=== PATIENT | male | born 1935 | race Caucasian/White ===

== ENCOUNTER 2022-12-08 19:24 | Inpatient (IN) | payer OTHER ==
--- OUTSIDE RECORDS SUMMARY | 2022-12-08 19:30 | XMS REPORT | Continuity of Care Document ---
:1935 Author Organization [facility] t Address [address] [place] [address] Clint. [address] [place] [address] Care Team Providers Name Role Phone Greg Guthrie Primary Care Physician Yesica Beard Attending Clinician Unavailable Estelle Alvarez Attending Clinician Unavailable Ivory Whitney Attending Clinician RADIOLOGY Attending Clinician Unavailable Radiology Attending Clinician Unavailable Payers Payer Name Policy Type Policy Number Effective Date Expiration Date [employer] [id number] 2021spring 00:00:00 [employer] [id number] 2019 Common Sp devin ing Medicare 00:00:00 - [facility] Problems Condition Condition Condition Status Onset Resolution Last Treating Co mments Source Name Details Category Date Date Treatment Clinician Date OCHCHITIS, OCHCHITIS Diagnosis Active 2013-04-21 Memoria EPIDYDIMIT , 04-10 21:49:00 l IS EPIDYDIMIT 00:00: Trevor araiza IS Active 00 04/10/2013 [facility] EPIDIDMITI Diagnosis Active 2013-04-11 Memoria S EPIDIDMITI 04-10 04:56:00 l S Active 00:00: John 04/10/2013 [facility] Thoracic Thoracic Disease Active Overview: Un karl or or 01-15 Formattin ity of lumbosacra lumbosacra 00:00: g of this [place] l neuritis l neuritis 00 note Me dical or or might be Branch radiculiti radiculiti different s, s, from the unspecifie unspecifie original. d d Left lower extermity radiculit is/numbne ss. Seborrheic Seborrheic Disease Active Overview : Univers dermatitis dermatitis Formattin ity of g of this [place] note Medical might be Branch different from the original. 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 [facility] [id number] Benign Problem Commo n 101 prostatic Spirit hyperplasi - CHI a with [facility] urinary Medical tract Center symptoms Low back Low back Problem Commo n pain pain Spirit [facility] Benign BPH Problem Common prostatic (benign Spirit hypertroph prostatic - C HI y with hypertroph St outflow y) with [facility] obstructio urinary Medic al n obstructio Center n Osteoarthr OA Problem Commo n itis (osteoarth Spirit ritis) - [facility] 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 - CH I due to with type 2 diabetic [facility] diabetes autonomic Medic al mellitus (poly)neur Cent er opathy 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 - [facility] Dupuytren Dupuytren Problem Com mon contractur contractur Sp devin e e - CHI [facility] Essential Benign Problem Common hypertensi essential Spi rit on HTN - [facility] [id number] Diabetic Problem Comm on retinopath Spirit y, - CHI background [facility] 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 - [facility] [id number] Kidney Problem Common stones Spirit - [facility] [id number] Erectile Problem Com mon disorder Spirit due to - medical condition [facility] in male Medical Center [id number] Type 2 Problem Common diabetes Spirit mellitus - CHI with diabetic [facility] neuropathy Medica l , without Center long-term current use of insulin [id number] Hypoglycem Problem Co mmon ic episode Spirit in patient - CHI with diabetes [facility] mellitus [facility] Kidney Kidney Problem Resolve 2013-04-22 Mem oria stone stone d 02:25:37 l Resolved John Problem 04/22/2013 [facility] Hypertensi Hypertens Problem Active 2022-05-29 Memoria ve lexie 11:07:14 l disorder, disorder, Herm steven systemic systemic arterial arterial (disorder) (disorder) Active Problem 05/29/2022 Medical Group,[facility] Lower Lower Problem Active 2022-05-29 [place] samuel urinary urinary 11:07:14 l tract tract [place] symptoms symptoms (finding) (finding) Active Problem 05/29/2022 Medical Group,[facility] 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 [place] (disorder) (disorder) Active Problem 05/29/2022 Medical Group,[facility] HTN - HTN - Problem Active 2013-04-22 Memor ia Hypertensi Hypertensi 02:25:37 l on on Active Trevor n Problem 04/22/2013 [facility] OTHER OTHER Diagnosis Active 2013-04-21 Mem oria GENERAL GENERAL 21:49:00 l SYMPTOMS SYMPTOMS Trevor n Active [facility] Allergies, Adverse Reactions, Alerts Allergy Allergy Status Severity Reaction(s) Onset Inactive Treating Comm ents Source Name Type Date Date Clinician NO KNOWN Drug Active Univers ALLERGIE Class ity of [facility] No Known No Known Active Memori a Medicati Medicati l on on John Allergie Allergie s s Social History Social Habit Start Date Stop Date Quantity Comments Source History of Common Spirit - Tobacco Use [facility] Sex Assigned At Common Sp devin - [facility] History SDWI University o f Alcohol Binge [place] Medic al Branch Exposure to Not sure University of SARS-CoV-2 [place] Medical (event) Branch History [facility] University o f Alcohol Frequency [facility] edical Branch History [facility] University o f Alcohol Std [place] Medical Drinks Branch Alcohol intake 2006-12-02 2006-12-02 Current drinker Unive rsity of 00:00:00 00:00:00 of alcohol [facility] (finding) Branch Alcohol Comment 2006-09-22 2006-09-22 no recent intake Uni versity of 00:00:00 00:00:00 alcohol, not for [place] Me dical 20 years. Branch Tobacco Comment 2006-09-22 2006-09-22 smoked for 20 Univer sity of 00:00:00 00:00:00 years, but quit [place] Med ical 15 years ago. Branch Smoking Status Start Date Stop Date Source Never Smoker Common Spirit - [facility] Ce nter Tobacco smoking status 2021-08-05 16:46:46 2021-08-05 16:46:46 M arpita Lopez Medications Ordered Filled Start Stop Current Ordering Indication Dosage Frequency Signature Comments Components Source Medication Medication Date Date Medication? Clinician (SIG) Name Name FreeStyle FreeStyle 2021-07 No QD FreeStyle Edw[place] 2 [place] 2 0-20 [place] 2 [place]: [place] 00 FreeStyle FreeStyle 2021-07 No FreeStyle Edwige 2 Edwige 2 0-20 Edwige 2 Sensor - Sensor - 00:00: Sensor - 00 FreeStyle FreeStyle 2021-07 No QD FreeStyle [place] 2 Ed[place] 2 0-20 [place] 2 [place] 00[place]: [place] - 00 FreeStyle FreeStyle 2021-07 No FreeStyle Edwige 2 Edwige 2 0-20 Edwige 2 Sensor - Sensor - 00:00: Sensor - 00 FreeStyle FreeStyle 2021-07 No QD FreeStyle Edw[place] 2 Edw[place] 2 0-20 [place] 2 [place] 00:[place]: [place] - 00 FreeStyle FreeStyle 2021-07 No QD FreeStyle Edwige 2 Edw[place] 2 0-20 [place] 2 [place] 00:[place]: [place] - 00 Levothyroxi Levothyroxi 0 No QD Levothyrox ne Sodium ne Sodium 9-28 ine Sodium 50 MCG 50 MCG 00:00: 50 MCG 00 Levothyroxi Levothyroxi 0 No QD Levothyrox ne Sodium ne Sodium 9-28 ine Sodium 50 MCG 50 MCG 00:00: 50 MCG 00 Levothyroxi Levothyroxi 0 No QD Levothyrox ne Sodium ne Sodium 9-28 ine Sodium 50 MCG 50 MCG 00:00: 50 MCG 00 Levothyroxi Levothyroxi 0 No QD Levothyrox ne Sodium ne Sodium 9-28 ine Sodium 50 MCG 50 MCG 00:00: 50 MCG 00 Levothyroxi Levothyroxi 0 No QD Levothyrox ne Sodium ne Sodium 9-28 ine Sodium 50 MCG 50 MCG 00:00: 50 MCG 00 Levothyroxi Levothyroxi 0 No QD Levothyrox ne Sodium ne Sodium 9-28 ine Sodium 50 MCG 50 MCG 00:00: 50 MCG 00 Levothyroxi Levothyroxi No QD Levothyrox ne Sodium ne Sodium 9-28 ine Sodium 50 MCG 50 MCG 00:00: 50 MCG 00 Levothyroxi Levothyroxi No QD Levothyrox ne Sodium ne Sodium 7-07 ine Sodium 25 MCG 25 MCG 00:00: 25 MCG 00 Levothyroxi Levothyroxi No QD Levothyrox ne Sodium ne Sodium 7-07 ine Sodium 25 MCG 25 MCG 00:00: 25 MCG 00 finasteride Yes 5 mg = 1 Me moria 5 mg oral 5-23 tab, PO, l tablet 17:49: Daily, # John 00 90 tab, 3 Refill(s), Pharmacy: [facility], 177.8, cm, 12/02/21 11:17:00 CDT, Height, 122.898, kg, 12/02/21 11:17:00 CDT, Weight tamsulosin Yes 0.4 mg = 1 M emoria 0.4 mg oral 5-23 cap, PO, l capsule 17:49: Daily, # Trevor n 00 90 cap, 3 Refill(s), Pharmacy: [facility], 177.8, cm, 12/02/21 11:17:00 CDT, Height, 122.898, kg, 12/02/21 11:17:00 CDT, Weight metFORMIN Yes 1,000 mg = Me moria 1000 mg 5-23 1 tab, PO, l oral tablet 16:21: BID, 0 Herm steven 00 Refill(s) nateglinide 0 Yes 60 mg = 1 M emoria 60 mg oral 5-23 tab, PO, l tablet 16:21: TID-Before Judy nn 00 Meals, 0 Refill(s) ketoconazol 0 Yes 1 appl, Mem oria e topical 5-23 TOP, l 2% shampoo 16:20: 2x/Wk, Judy nn 00 separate doses by at least 3 days, # 120 mL, 1 Refill(s) DULoxetine Yes 60 mg = 1 Me moria 60 mg oral 5-23 cap, PO, l delayed 16:20: Daily, 0 Trevor n release 00 Refill(s) capsule gabapentin Yes 300 mg = 1 M emoria 300 mg oral 5-23 cap, PO, l capsule 16:20: TID, 0 John 00 Refill(s) lovastatin 0 Yes 20 mg = 1 Me moria 20 mg oral 5-23 tab, PO, l tablet 16:20: Daily, 0 [place] 00 Refill(s) ciclopirox 0 Yes TOP, BID, Me moria topical 5-23 0 l 0.77% cream 16:19: Refill(s) H erm finasteride Yes 5 mg = 1 Me moria 5 mg oral 2-28 tab, PO, l tablet 15:52: Daily, # [place] 00 90 tab, 1 Refill(s), Pharmacy: [facility], 177.8, cm, 09/09/21 9:37:00 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, Height, 120.909, kg, 09/09/21 9:37:00 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, Weight tamsulosin Yes 0.4 mg = 1 M emoria 0.4 mg oral 2-28 cap, PO, l capsule 15:52: Daily, # Trevor n 00 90 cap, 1 Refill(s), Pharmacy: [facility], 177.8, cm, 09/09/21 9:37:00 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, Height, 120.909, kg, 09/09/21 9:37:00 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, Weight Hydrochloro 2021-0 Yes 0 Memori a thiazide 25 1-24 Refill(s) l MG Oral 21:57: [place] Tablet 00 hydrochloro 0 Yes 0 Memori a thiazide 25 1-24 Refill(s) l mg oral 21:57: John tablet 00 FreeStyle FreeStyle 2020-0 Yes Na Alvarez as Common Edwige 14 Edwige 14 - directed Spi rit Day [place] Day [place] 00:00: - [facility]I 00 [facility] FreeStyle FreeStyle 2020-0 Yes Na Alvarez USE Common Edwige 14 Edwige 14 02-08 DIRECTED Spi rit Day Sensor Day Sensor 00:00: EVERY 14 - CHI 00 DAYS [facility] FreeStyle FreeStyle 2020-0 No QD FreeStyle Ewdige 14 Edwige 14 7-30 Ed[place]ige 14 Day [place] Day [place] 00:00: Day [place] - - 00 - FreeStyle FreeStyle 2020-0 No QD FreeStyle [place] 14 Edwige 14 7-30 Ed[place]ige 14 Day [place] Day [place] 00:00: Day [place] - - 00 - FreeStyle FreeStyle 2020-0 No QD FreeStyle [place] 14 Edwige 14 7-30 Ed[place]ige 14 Day [place] Day [place] 00:00: Day [place] - - 00 - FreeStyle FreeStyle 2020-0 No QD FreeStyle Ed[place]ige 14 Edwige 14 7-30 Ed[place]ige 14 Day [place] Day [place] 00:00: Day [place] - - 00 - FreeStyle FreeStyle 2020-0 No QD FreeStyle Ed[place]ige 14 Edwige 14 7-30 Ed[place]ige 14 Day [place] Day [place] 00:00: Day [place] - - 00 - FreeStyle FreeStyle 2020-0 No QD FreeStyle Ed[place]ige 14 Edwige 14 7-30 Ed[place]ige 14 Day [place] Day [place] 00:00: Day [place] - - 00 - FreeStyle FreeStyle 2020-0 No QD FreeStyle Edwige 14 Edwige 14 7-30 Ed[place]ige 14 Day [place] Day [place] 00:00: Day [place] - - 00 - FreeStyle FreeStyle 2020-0 No QD FreeStyle Ed[place]ige 14 Edwige 14 7-30 Edwige 14 Day [place] Day [place] 00:00: Day [place] - - 00 - FreeStyle FreeStyle 2020-0 No QD FreeStyle Edwige 14 Edwige 14 7-30 Edwige 14 Day [place] Day [place] 00:00: Day [place] - - 00 - FreeStyle FreeStyle 2020-0 No QD FreeStyle Edwige 14 Edwige 14 7-30 Edwige 14 Day [place] Day [place] 00:00: Day [place] - - 00 - FreeStyle FreeStyle 2020-0 No QD FreeStyle Edwige 14 Edwige 14 7-30 Edwige 14 Day [place] Day [place] 00:00: Day [place] - - 00 - Nateglinide Nateglinide 2020-0 Yes Na Alvarez 1 tablet Common 01-01 before Spirit 00:00: meals - CHI 00 [facility] Gabapentin Gabapentin 2020-0 Yes Na Alvarez as Common 4-07 directed Spirit 00:00: - CHI 00 [facility] Lipitor 2012- No Nila 20 mg, 1 Memor ia 0-05 Mirna tab, l 02:00: Frida Route: PO, Her gallagher 00 Drug form: TAB, Bedtime, Start date: 04/15/13 21:00:00, Duration: 30 day, Stop date: 05/14/13 21:00:00 lovastatin 2012-07 No Nila 40 mg, [place] samuel 0-04 Mirna Route: PO, l 14:00: Frida Drug form: Her gallagher 00 TAB, Daily, Dosing Weight 120.2, kg, Start date: 04/15/13 9:00:00, Duration: 30 day, Stop date: 05/14/13 9:00:00 heparin 2012-07 No Nila 7,500 Memoria 0-04 Mirna unit, 1.5 l 05:00: Frida mL, Route: Her gallagher 00 SUB-Q, Drug form: INJ, Q8H, Start date: 04/15/13 0:00:00, Duration: 30 day, Stop date: 05/14/13 16:00:00 lactulose 2012-07 No Nila 10 gm, 15 Me moria 10 g/15 mL 0-04 Mirna mL, Route: l oral syrup 02:40: Frida PO, Drug [place] 00 Form: SYRP, Dosing Weight 120.2, kg, ONCE, Start date: 04/14/13 21:40:00, Stop date: 04/14/13 21:40:00 levofloxaci 2012-07 Yes Nila 750 mg, 1 Memoria n 750 mg 0-03 Mirna tab, PO, l oral tablet 20:11: Frida Q24H, 10 [place] 55 tab, Substituti on Allowed, TAB Colace 100 2012-07 Yes Nila 100 mg, 1 M emoria mg oral 0-03 Mirna cap, PO, l capsule 20:11: Frida BID, 30 Her gallagher 52 cap, Substituti on Allowed, CAP acetaminoph 2012-07 Yes Nila 1 tab, PO, Memoria en-hydrocod 0-03 Mirna Q4H, PRN, l one 325 20:11: Frida 30 tab, Her gallagher mg-5 mg 50 Pain Score oral tablet 4-6, Substituti on Allowed, Maintenanc e, TAB ibuprofen 2013-1 Yes Nila 400 mg, 1 Me moria 400 mg oral 0-03 Mirna tab, PO, l tablet 20:11: Frida Q8H, 30 Herm steven 48 tab, Substituti on Allowed, TAB Levaquin 2012-07 No Nila 750 mg, 1 Mem oria 0-03 Mirna tab, l 16:00: Frida Route: PO, Her gallagher 00 Drug form: TAB, Q24H, Dosing Weight 120.2, kg, For CrCl > 49ml/min, Start date: 04/14/13 11:00:00, Duration: 10 day, Stop date: 04/23/13 11:00:00 Fluzone 2012-07 No SYSTEM 0.5 mL, Memor ia 002 SYSTEM Route: IM, l 21:00: Drug Form: John 00 SUSP, Start date: 04/13/13 16:00:00, Stop date: 04/13/13 16:00:00 Colace 100 2012-07 No Adam 100 mg, 1 M emoria mg oral 0-02 Demarco cap, l capsule 14:00: Hasan Route: PO, Her gallagher 00 Drug form: CAP, BID, Dosing Weight 120.2, kg, Start date: 04/13/13 9:00:00, Duration: 30 day, Stop date: 05/12/13 17:00:00 MiraLax 2012-07 No Adam 17 gm, 1 Memor ia 0-02 Demarco pkt, l 03:26: Hasan Route: PO, Trevor n 00 Drug form: PWDR, BID, Dosing Weight 120.2, kg, PRN Constipati on, Start date: 04/12/13 22:26:00, Duration: 30 day, Stop date: 05/12/13 22:25:00 Levaquin 2012-07 No Nila 750 mg, Memor ia 0-01 Mirna 150 mL, l 15:30: Frida Route: [place] 00 IVPB, Drug form: SOLN, [id number], Dosing Weight 120.2, kg, Start date: 04/12/13 10:30:00, Duration: 30 day, Stop date: 05/11/13 10:30:00 lovastatin Yes 40 mg, 1 Mem oria 40 mg oral 9-30 tab, PO, l tablet 22:00: Daily, 30 Trevor n 41 tab, Substituti on Allowed, TAB lovastatin 0 Yes Nila 40 mg, 1 Me moria 40 mg oral 9-30 Mirna tab, PO, l tablet 22:00: Frida Daily, 30 He rmann 41 tab, Substituti on Allowed, TAB Metoprolol 2012-0 Yes 25 mg, 1 Mem oria Tartrate 25 9-30 tab, PO, l mg oral 22:00: BID, 60 [place] tablet 00 tab, Substituti on Allowed Metoprolol 2012-0 Yes 25 mg, 1 Mem oria Tartrate 25 9-30 tab, PO, l mg oral 22:00: BID, 60 [place] tablet 00 tab, Substituti on Allowed Cipro 0 No Beryl H 400 mg, Memoria 9-30 Khraish 200 mL, l 20:00: Route: John 00 IVPB, Drug form: INJ, [id number], Start date: 04/11/13 15:00:00, Duration: 30 day, Stop date: 05/11/13 3:00:00 Sodium 2012-0 No Belgin 1,000 mL, [place] samuel Chloride 9-30 Camcioglu Rate: 40 l 0.9% IV 16:11: ml/hr, [place] 1,000 mL 00 Infuse over: 25 hr, Route: IV, Dosing Weight 120.2 kg, Total Volume: 1,000, Start date: 04/11/13 11:11:00, Duration: 30 day, Stop date: 05/11/13 11:10:00 morphine 2012-0 No [place] 2 mg, 1 [place] samuel Sulfate 9-30 Camcioglu mL, Route: l 16:09: IVP, Drug form: INJ, Q3H, PRN Pain Score 7-10, Start date: 04/11/13 11:09:00, Duration: 30 day, Stop date: 05/11/13 11:08:00 acetaminoph 2012-0 No [place] 1 tab, Me moria en-hydrocod 9-30 Camcioglu Route: PO, l one 325 16:00: Drug Form: Herm steven mg-5 mg 00 TAB, Q4H, oral tablet PRN Pain Score 4-6, Start date: 04/11/13 11:00:00, Duration: 30 day, Stop date: 05/11/13 10:59:00 influenza 2012-0 No SYSTEM 0.5 mL, Mem oria virus 930 SYSTEM Route: IM, l vaccine, 14:00: Drug Form: gallagher inactivated 00 SUSP, Daily, Start date: 04/11/13 9:00:00, Duration: 1 doses or times, Stop date: 04/11/13 9:00:00 Lopressor 2012-0 No [place] 12.5 mg, 1 Memoria 9-30 Camcioglu ea, Route: l 14:00: PO, Drug [place] form: TAB, BID, Start date: 04/11/13 9:00:00, Duration: 30 day, Stop date: 05/10/13 21:00:00 metoprolol 2012-0 No [place] 12.5 mg, 1 Memoria tartrate 9-30 Camcioglu ea, Route: l 14:00: PO, Drug [place] form: TAB, BID, Dosing Weight 125, kg, Start date: 04/11/13 9:00:00, Duration: 30 day, Stop date: 05/10/13 17:00:00 ibuprofen 2012-0 No Kristi 400 mg, 1 M emoria 400 mg oral 9-30 Zara tab, l tablet 13:00: [place] Route: PO, Her gallagher 00 Drug form: TAB, Q8H, Dosing Weight 125, kg, Priority: Routine, Start date: 04/11/13 8:00:00, Duration: 3 day, Stop date: 04/14/13 0:00:00 Motrin 2012-0 No Kristi 400 mg, 1 [place] samuel 9-30 Zara tab, l 13:00: [place] Route: PO, Judy nn 00 Drug form: TAB, Q8H, Start date: 04/11/13 8:00:00, Duration: 30 day, Stop date: 05/11/13 4:00:00 aspirin 2012-0 Yes 81 mg, PO, [place] samuel 9-30 Daily, l 11:44: Substituti [place] 35 on Allowed aspirin 2012-0 Yes 81 mg, PO, [place] samuel 9-30 Daily, l 11:44: Substituti John 35 on Allowed NS 1,000 mL No Bel[place] 1,000 mL, Memoria 9-30 Camcioglu Rate: 40 l 09:11: ml/hr, [place] 00 Infuse over: 25 hr, Route: IV, Dosing Weight 125 kg, Total Volume: 1,000, Start date: 04/11/13 4:11:00, Duration: 30 day, Stop date: 05/11/13 4:10:00 acetaminoph No [place] 1 tab, Me moria en-hydrocod 9-30 Camcioglu Route: PO, l one 325 09:10: Drug Form: Herm steven mg-5 mg 00 TAB, oral tablet Dosing Weight 125, kg, Q4H, PRN Pain Score 4-6, Start date: 04/11/13 4:10:00, Duration: 30 day, Stop date: 05/11/13 4:09:00 morphine No [place] 2 mg, 1 [place] samuel Sulfate 30 Cam[place]lu mL, Route: l 09:10: IVP, Drug John 00 form: INJ, Q3H, Dosing Weight 125, kg, PRN Pain Score 7-10, Start date: 04/11/13 4:10:00, Duration: 30 day, Stop date: 05/11/13 4:09:00 Dilaudid No Nila 1 mg, 0.5 Mem oria 9-30 Phoebe mL, Route: l 08:36: Shorty IV, Drug Herm steven form: INJ, ONCE, Dosing Weight 125, kg, Start date: 04/11/13 3:36:00, Stop date: 04/11/13 3:36:00 ibuprofen 2012- No Nila 600 mg, 1 Me moria 9-30 Phoebe tab, l 08:35: Shorty Route: PO, He rmann 00 Drug form: TAB, ONCE, Dosing Weight 125, kg, Priority: STAT, Start date: 04/11/13 3:35:00, Stop date: 04/11/13 3:35:00 Cipro 2012- No Kristi 400 mg, Memoria 9-30 Zara 200 mL, l 07:45: [place] Route: John 00 IVPB, Drug form: INJ, [id number], Dosing Weight 125, kg, Priority: STAT, Start date: 04/11/13 2:45:00, Duration: 30 day, Stop date: 05/10/13 14:45:00 Dilaudid No Nila 1 mg, Memoria 04-11 Phoebe Route: IV, l 04:53: Shorty ONCE, [place] 00 Dosing Weight 125, kg, Start date: 04/10/13 23:53:00, Stop date: 04/10/13 23:53:00 Flagyl No Nila 500 mg, Memoria 04-11 Phoebe 100 mL, l 04:50: Shorty Route: Trevor n 00 IVPB, Drug form: INJ, ONCE, Dosing Weight 125, kg, Priority: STAT, Start date: 04/10/13 23:50:00, Stop date: 04/10/13 23:50:00 HYDROCODONE 2006-07 Yes 1tab Q Univ ers -ACETAMINOP 1-23 4-6H prn ity of HEN 5-500 13:52: pain [place] MG ORAL TAB [address] [place] [address] Branch LIPITOR 10 2006-07 Yes 2tabs po Uni vers MG ORAL TAB 1-23 QD ity of 13:52: [address] TOPROL XL 2006-07 Yes 2tabs po Univ ers 50 MG ORAL 1-23 QD ity of TB24 13:52: [address] HYDROCODONE 2006-07 Yes 1tab Q Univ ers -ACETAMINOP 1-23 4-6H prn ity of HEN 5-500 13:52: pain [place] MG ORAL TAB Medical Branch LIPITOR 10 2006-07 Yes 2tabs po Uni vers MG ORAL TAB 1-23 QD ity of 13:52: [address] TOPROL XL 2006-07 Yes 2tabs po Univ ers 50 MG ORAL 1-23 QD ity of TB24 13:52: [address] Branch LASIX 20 MG Yes [id number] 1 tab po Univers ORAL TAB 7-10 daily ity of 00:00: [address] LASIX 20 MG Yes [id number] 1 tab po Univers ORAL TAB 7-10 daily ity of 00:00: [address] GABAPENTIN Yes 1tab 3x Univ ers 100 MG ORAL 7-06 daily ity of TAB 20:25: [address] HYDROCODONE 2007-0 Yes 1-2tabs Q U nivers -ACETAMINOP 7-06 4-6hrs prn it y of HEN 5-500 20:25: pain [place] MG ORAL TAB [address] [place] [address] GABAPENTIN 2006-0 Yes 1tab 3x Univ ers 100 MG ORAL 7-06 daily ity of TAB 20:25: [address] HYDROCODONE 2006- Yes 1-2tabs Q U nivers -ACETAMINOP 7-06 4-6hrs prn it y of HEN 5-500 20:25: pain [place] MG ORAL TAB [address] [place] [address] LIPITOR 10 2006- Yes 1 per day Un karl MG ORAL TAB 5-23 ity of 18:42: [address] PROTONIX 2006- Yes 1 per day Univ ers ORAL 5-23 ity of 18:42: [address] TOPROL XL Yes 1 perd day Un karl 50 MG ORAL 5-23 ity of TB24 18:42: [address] VICODIN Yes prn Univers ORAL 5-23 ity of 18:42: [address] LIPITOR 10 Yes 1 per day Un karl MG ORAL TAB 5-23 ity of 18:42: [address] PROTONIX 2006- Yes 1 per day Univ ers ORAL 5-23 ity of 18:42: [address] TOPROL XL Yes 1 perd day Un karl 50 MG ORAL 5-23 ity of TB24 18:42: [address] VICODIN 2006- Yes prn Univers ORAL 5-23 ity of 18:42: [address] ASPIRIN 81 Yes None Univers MG ORAL 5-23 Entered ity of CHEW 18:42: [address] ASPIRIN 81 2006- Yes None Univers MG ORAL 5-23 Entered ity of CHEW 18:42: [address] PRILOSEC 20 Yes one daily U nivers MG ORAL 3-27 instead of ity of CPDR 14:47: protonix [address] PRILOSEC 20 Yes one daily U nivers MG ORAL 3-27 instead of ity of CPDR 14:47: protonix [address] VIAGRA 50 Yes one about Uni vers MG ORAL TAB 3-13 an hour ity o f 00:00: before [place] 00 sex, limit Medical of one Branch dose a day VIAGRA 50 Yes one about Uni vers MG ORAL TAB 3-13 an hour ity o f 00:00: before sex, limit Medical of one Branch dose a day VICODIN Yes one bid Univers 5-500 MG 1-09 prn ity of ORAL TAB 00:00: Medical [facility] LOVASTATIN Yes two [facility] 10 MG ORAL 1-09 tablets ity of TAB 00:00: daily instead of Medical lipitor Branch TERAZOSIN 1 Yes one every U nivers MG ORAL CAP -09 bedtime ity o f 00:00: Medical Branch METOPROLOL Yes one every Un [facility]arl TARTRATE 50 1-09 am and one it y of MG ORAL TAB 00:00: every pm- [place] 00 12 hours Medical apart- Branch instead of toprol VICODIN Yes one bid [facility] 5-500 MG 1-09 prn ity of ORAL TAB 00:00: Medical Branch LOVASTATIN Yes two [facility] 10 MG ORAL 1-09 tablets ity of TAB 00:00: daily instead of Medical lipitor Branch TERAZOSIN 1 Yes one every U nivers MG ORAL CAP 09 bedtime ity o f 00:00: Medical Branch METOPROLOL Yes one every Un [facility]arl TARTRATE 50 1-09 am and one it y of MG ORAL TAB 00:00: every pm- [place] 00 12 hours Medical apart- Branch instead of toprol Aspir-81 Aspir-81 Yes Na Alvarez 1 tablet Common [facility] Hydrochloro Hydrochloro Yes Na Alvarez 1 tablet Common thiazide thiazide [facility] Metoprolol Metoprolol Yes Na Alvarez take one Common Succinate Succinate tablet by [facility] ER ER mouth once - [facility] daily [facility] Lovastatin Lovastatin Yes Na Alvarez take one Common tablet by [facility] mouth once - [facility] daily [facility] Zantac Zantac Yes Na Alvarez 1 tablet Comm on at bedtime [facility] Duloxetine Duloxetine Yes Na Alvarez TAKE 1 Common HCl HCl CAPSULE [facility] MOUTH ONCE - [facility] DAILY [facility] Famotidine Famotidine Yes Na Alvarez 1 tablet Common as needed [facility] Metformin Metformin Yes Na Alvarez 1 tablet Common HCl HCl with meals [facility] Metoprolol Metoprolol No QD Metoprolol Succinate Succinate Succinate ER 50MG ER 50MG ER 50MG DULoxetine DULoxetine No QD DULoxetine HCl 60 MG HCl 60 MG HCl 60 MG Lovastatin Lovastatin No Lovastatin 20MG 20MG 20MG Tamsulosin Tamsulosin No QD Tamsulosin HCl 0.4MG HCl 0.4MG HCl 0.4MG Lovastatin Lovastatin No QD Lovastatin 20MG 20MG 20MG Gabapentin Gabapentin No Gabapentin 300 MG 300 MG 300 MG metFORMIN metFORMIN No metFORMIN HCl 1000 MG HCl 1000 MG HCl 1000 MG Metoprolol Metoprolol No Metoprolol Succinate Succinate Succinate ER 50 MG ER 50 MG ER 50 MG FreeStyle FreeStyle No QD FreeStyle [facility] 14 Ed[facility]ige 14 [facility] 14 Day Sensor Day Sensor Day Sensor - - - Nateglinide Nateglinide No 1{table BID Nateglinid 60 MG 60 MG t_befor e 60 MG e_meals } Famotidine Famotidine No Famotidine 40 MG 40 MG 40 MG Aspir-81 81 Aspir-81 81 No 1{table QD Aspir-81 MG MG t} 81 MG hydroCHLORO hydroCHLORO No QD hydroCHLOR thiazide 25 thiazide 25 Othiazide MG MG 25 MG FreeStyle FreeStyle No QD FreeStyle [place]ige 14 Ed[place]ige 14 [place] 14 Day Sensor Day Sensor Day Sensor - - - Metformin Metformin No 1{table BID Metformin HCl 1000 MG HCl 1000 MG t_with_ HCl 1000 meals} MG Zantac 150 Zantac 150 No 1{table QD Zantac 150 MG MG t_at_be MG dtime} Metoprolol Metoprolol No QD Metoprolol Succinate Succinate Succinate ER 50MG ER 50MG ER 50MG DULoxetine DULoxetine No QD DULoxetine HCl 60 MG HCl 60 MG HCl 60 MG Metoprolol Metoprolol No Metoprolol Succinate Succinate Succinate ER 50 MG ER 50 MG ER 50 MG Tamsulosin Tamsulosin No Tamsulosin HCl 0.4 MG HCl 0.4 MG HCl 0.4 MG Metformin Metformin No 1{table BID Metformin HCl 1000 MG HCl 1000 MG t_with_ HCl 1000 meals} MG Gabapentin Gabapentin No Gabapentin 300 MG 300 MG 300 MG Lovastatin Lovastatin No QD Lovastatin 20MG 20MG 20MG Famotidine Famotidine No Famotidine 40 MG 40 MG 40 MG Nateglinide Nateglinide No Nateglinid 60 MG 60 MG e 60 MG Aspir-81 81 Aspir-81 81 No 1{table QD Aspir-81 MG MG t} 81 MG metFORMIN metFORMIN No metFORMIN HCl 1000 MG HCl 1000 MG HCl 1000 MG FreeStyle FreeStyle No QD FreeStyle [place] 14 Edwige 14 Ed[place] 14 Day Sensor Day Sensor Day Sensor - - - hydroCHLORO hydroCHLORO No hydroCHLOR thiazide 25 thiazide 25 Othiazide MG MG 25 MG FreeStyle FreeStyle No QD FreeStyle [place] 14 Ed[place] 14 [place] 14 Day Sensor Day Sensor Day Sensor - - - Lovastatin Lovastatin No Lovastatin 20MG 20MG 20MG Zantac 150 Zantac 150 No 1{table QD Zantac 150 MG MG t_at_be MG dtime} Zantac 150 Zantac 150 No 1{table QD Zantac 150 MG MG t_at_be MG dtime} Tamsulosin Tamsulosin No Tamsulosin HCl 0.4 MG HCl 0.4 MG HCl 0.4 MG DULoxetine DULoxetine No QD DULoxetine HCl 60 MG HCl 60 MG HCl 60 MG hydroCHLORO hydroCHLORO No hydroCHLOR thiazide 25 thiazide 25 Othiazide MG MG 25 MG Aspir-81 81 Aspir-81 81 No 1{table QD Aspir-81 MG MG t} 81 MG Famotidine Famotidine No Famotidine 40 MG 40 MG 40 MG Nateglinide Nateglinide No Nateglinid 60 MG 60 MG e 60 MG Lovastatin Lovastatin No Lovastatin 20MG 20MG 20MG FreeStyle FreeStyle No QD FreeStyle Ed[place]ige 14 Edwige 14 [place] 14 Day Sensor Day Sensor Day Sensor - - - Metoprolol Metoprolol No QD Metoprolol Succinate Succinate Succinate ER 50MG ER 50MG ER 50MG FreeStyle FreeStyle No QD FreeStyle Edwige 14 Edwige 14 Ed[place] 14 Day Sensor Day Sensor Day Sensor - - - Metformin Metformin No 1{table BID Metformin HCl 1000 MG HCl 1000 MG t_with_ HCl 1000 meals} MG metFORMIN metFORMIN No metFORMIN HCl 1000 MG HCl 1000 MG HCl 1000 MG Lovastatin Lovastatin No QD Lovastatin 20MG 20MG 20MG Gabapentin Gabapentin No Gabapentin 300 MG 300 MG 300 MG Metoprolol Metoprolol No Metoprolol Succinate Succinate Succinate ER 50 MG ER 50 MG ER 50 MG hydroCHLORO hydroCHLORO No hydroCHLOR thiazide 25 thiazide 25 Othiazide MG MG 25 MG Zantac 150 Zantac 150 No 1{table QD Zantac 150 MG MG t_at_be MG dtime} Metformin Metformin No 1{table BID Metformin HCl 1000 MG HCl 1000 MG t_with_ HCl 1000 meals} MG Tamsulosin Tamsulosin No Tamsulosin HCl 0.4 MG HCl 0.4 MG HCl 0.4 MG FreeStyle FreeStyle No FreeStyle Edwige 14 Edwige 14 [place] 14 Day Sensor Day Sensor Day Sensor - - - metFORMIN metFORMIN No metFORMIN HCl 1000 MG HCl 1000 MG HCl 1000 MG Finasteride Finasteride No 1{table QD Finasterid 5 MG 5 MG t} e 5 MG Gabapentin Gabapentin No Gabapentin 300 MG 300 MG 300 MG DULoxetine DULoxetine No DULoxetine HCl 60 MG HCl 60 MG HCl 60 MG Metoprolol Metoprolol No Metoprolol Succinate Succinate Succinate ER 50 MG ER 50 MG ER 50 MG Gabapentin Gabapentin No Gabapentin 300 MG 300 MG 300 MG Metoprolol Metoprolol No QD Metoprolol Succinate Succinate Succinate ER 50MG ER 50MG ER 50MG Famotidine Famotidine No Famotidine 40 MG 40 MG 40 MG Nateglinide Nateglinide No Nateglinid 60 MG 60 MG e 60 MG Lovastatin Lovastatin No QD Lovastatin 20MG 20MG 20MG Aspir-81 81 Aspir-81 81 No 1{table QD Aspir-81 MG MG t} 81 MG Lovastatin Lovastatin No Lovastatin 20 MG 20 MG 20 MG FreeStyle FreeStyle No QD FreeStyle Edwige 14 Edwige 14 Ed[place]ige 14 Day Sensor Day Sensor Day Sensor - - - Tamsulosin Tamsulosin No Tamsulosin HCl 0.4 MG HCl 0.4 MG HCl 0.4 MG metFORMIN metFORMIN No metFORMIN HCl 1000 MG HCl 1000 MG HCl 1000 MG Metoprolol Metoprolol No Metoprolol Succinate Succinate Succinate ER 50 MG ER 50 MG ER 50 MG Zantac 150 Zantac 150 No 1{table QD Zantac 150 MG MG t_at_be MG dtime} Lovastatin Lovastatin No Lovastatin 20 MG 20 MG 20 MG Gabapentin Gabapentin No Gabapentin 300 MG 300 MG 300 MG Metoprolol Metoprolol No QD Metoprolol Succinate Succinate Succinate ER 50MG ER 50MG ER 50MG Finasteride Finasteride No 1{table QD Finasterid 5 MG 5 MG t} e 5 MG FreeStyle FreeStyle No FreeStyle Edwige 14 Edwige 14 Edwige 14 Day Sensor Day Sensor Day Sensor - - - Lovastatin Lovastatin No QD Lovastatin 20MG 20MG 20MG Nateglinide Nateglinide No Nateglinid 60 MG 60 MG e 60 MG hydroCHLORO hydroCHLORO No hydroCHLOR thiazide 25 thiazide 25 Othiazide MG MG 25 MG Gabapentin Gabapentin No Gabapentin 300 MG 300 MG 300 MG Famotidine Famotidine No Famotidine 40 MG 40 MG 40 MG Aspir-81 81 Aspir-81 81 No 1{table QD Aspir-81 MG MG t} 81 MG Metformin Metformin No 1{table BID Metformin HCl 1000 MG HCl 1000 MG t_with_ HCl 1000 meals} MG DULoxetine DULoxetine No 1{capsu BID DULoxetine HCl 60 MG HCl 60 MG le} HCl 60 MG Finasteride Finasteride No 1{table QD Finasterid 5 MG 5 MG t} e 5 MG FreeStyle FreeStyle No FreeStyle Edwige 14 Edwige 14 Ed[place] 14 Day Sensor Day Sensor Day Sensor - - - Ciclopirox Ciclopirox No 1{appli BID Ciclopirox 0.77 % 0.77 % cation} 0.77 % Nateglinide Nateglinide No Nateglinid 60 MG 60 MG e 60 MG Metoprolol Metoprolol No Metoprolol Succinate Succinate Succinate ER 50 MG ER 50 MG ER 50 MG Zantac 150 Zantac 150 No 1{table QD Zantac 150 MG MG t_at_be MG dtime} DULoxetine DULoxetine No 1{capsu BID DULoxetine HCl 60 MG HCl 60 MG le} HCl 60 MG Gabapentin Gabapentin No Gabapentin 300 MG 300 MG 300 MG Metformin Metformin No 1{table BID Metformin HCl 1000 MG HCl 1000 MG t_with_ HCl 1000 meals} MG Lovastatin Lovastatin No QD Lovastatin 20MG 20MG 20MG metFORMIN metFORMIN No metFORMIN HCl 1000 MG HCl 1000 MG HCl 1000 MG Aspir-81 81 Aspir-81 81 No 1{table QD Aspir-81 MG MG t} 81 MG Famotidine Famotidine No Famotidine 40 MG 40 MG 40 MG Gabapentin Gabapentin No Gabapentin 300 MG 300 MG 300 MG FreeStyle FreeStyle No QD FreeStyle Edw[place] 14 Edwige 14 Ed[place] 14 Day Sensor Day Sensor Day Sensor - - - hydroCHLORO hydroCHLORO No hydroCHLOR thiazide 25 thiazide 25 Othiazide MG MG 25 MG Metoprolol Metoprolol No QD Metoprolol Succinate Succinate Succinate ER 50MG ER 50MG ER 50MG Tamsulosin Tamsulosin No Tamsulosin HCl 0.4 MG HCl 0.4 MG HCl 0.4 MG Lovastatin Lovastatin No Lovastatin 20 MG 20 MG 20 MG Ketoconazol Ketoconazol No 5{ml} Ketoconazo e 2 % e 2 % le 2 % Finasteride Finasteride No 1{table QD Finasterid 5 MG 5 MG t} e 5 MG FreeStyle FreeStyle No FreeStyle Ed[place]ige 14 Edwige 14 [place] 14 Day Sensor Day Sensor Day Sensor - - - Nateglinide Nateglinide No Nateglinid 60 MG 60 MG e 60 MG Metoprolol Metoprolol No Metoprolol Succinate Succinate Succinate ER 50 MG ER 50 MG ER 50 MG Zantac 150 Zantac 150 No 1{table QD Zantac 150 MG MG t_at_be MG dtime} Ciclopirox Ciclopirox No 1{appli BID Ciclopirox 0.77 % 0.77 % cation} 0.77 % Gabapentin Gabapentin No Gabapentin 300 MG 300 MG 300 MG Metformin Metformin No 1{table BID Metformin HCl 1000 MG HCl 1000 MG t_with_ HCl 1000 meals} MG hydroCHLORO hydroCHLORO No hydroCHLOR thiazide 25 thiazide 25 Othiazide MG MG 25 MG Lovastatin Lovastatin No QD Lovastatin 20MG 20MG 20MG Aspir-81 81 Aspir-81 81 No 1{table QD Aspir-81 MG MG t} 81 MG metFORMIN metFORMIN No metFORMIN HCl 1000 MG HCl 1000 MG HCl 1000 MG Metoprolol Metoprolol No QD Metoprolol Succinate Succinate Succinate ER 50MG ER 50MG ER 50MG FreeStyle FreeStyle No QD FreeStyle Edwige 14 Edwige 14 Ed[place]ige 14 Day Sensor Day Sensor Day Sensor - - - Famotidine Famotidine No Famotidine 40 MG 40 MG 40 MG DULoxetine DULoxetine No 1{capsu BID DULoxetine HCl 60 MG HCl 60 MG le} HCl 60 MG Gabapentin Gabapentin No Gabapentin 300 MG 300 MG 300 MG Tamsulosin Tamsulosin No Tamsulosin HCl 0.4 MG HCl 0.4 MG HCl 0.4 MG Lovastatin Lovastatin No Lovastatin 20 MG 20 MG 20 MG Ketoconazol Ketoconazol No 5{ml} Ketoconazo e 2 % e 2 % le 2 % Metoprolol Metoprolol No Metoprolol Succinate Succinate Succinate ER 50 MG ER 50 MG ER 50 MG Finasteride Finasteride No 1{table QD Finasterid 5 MG 5 MG t} e 5 MG Ciclopirox Ciclopirox No 1{appli BID Ciclopirox 0.77 % 0.77 % cation} 0.77 % Nateglinide Nateglinide No Nateglinid 60 MG 60 MG e 60 MG Zantac 150 Zantac 150 No 1{table QD Zantac 150 MG MG t_at_be MG dtime} DULoxetine DULoxetine No 1{capsu BID DULoxetine HCl 60 MG HCl 60 MG le} HCl 60 MG Gabapentin Gabapentin No Gabapentin 300 MG 300 MG 300 MG Metformin Metformin No 1{table BID Metformin HCl 1000 MG HCl 1000 MG t_with_ HCl 1000 meals} MG hydroCHLORO hydroCHLORO No hydroCHLOR thiazide 25 thiazide 25 Othiazide MG MG 25 MG Lovastatin Lovastatin No QD Lovastatin 20MG 20MG 20MG Aspir-81 81 Aspir-81 81 No 1{table QD Aspir-81 MG MG t} 81 MG Ketoconazol Ketoconazol No 5{ml} Ketoconazo e 2 % e 2 % le 2 % Gabapentin Gabapentin No Gabapentin 300 MG 300 MG 300 MG FreeStyle FreeStyle No QD FreeStyle Edwige 14 Edwige 14 Ed[place] 14 Day Sensor Day Sensor Day Sensor - - - metFORMIN metFORMIN No metFORMIN HCl 1000 MG HCl 1000 MG HCl 1000 MG Metoprolol Metoprolol No QD Metoprolol Succinate Succinate Succinate ER 50MG ER 50MG ER 50MG Famotidine Famotidine No 1{table QD Famotidine 40 MG 40 MG t_as_ne 40 MG eded} Tamsulosin Tamsulosin No Tamsulosin HCl 0.4 MG HCl 0.4 MG HCl 0.4 MG Lovastatin Lovastatin No Lovastatin 20 MG 20 MG 20 MG FreeStyle FreeStyle No FreeStyle Edwige 14 Edwige 14 [place] 14 Day Sensor Day Sensor Day Sensor - - - Ketoconazol Ketoconazol No 5{ml} Ketoconazo e 2 % e 2 % le 2 % FreeStyle FreeStyle No QD FreeStyle [place] 14 Edwige 14 [place] 14 Day Sensor Day Sensor Day Sensor - - - Tamsulosin Tamsulosin No Tamsulosin HCl 0.4 MG HCl 0.4 MG HCl 0.4 MG Metformin Metformin No 1{table BID Metformin HCl 1000 MG HCl 1000 MG t_with_ HCl 1000 meals} MG Ciclopirox Ciclopirox No 1{appli BID Ciclopirox 0.77 % 0.77 % cation} 0.77 % Famotidine Famotidine No 1{table QD Famotidine 40 MG 40 MG t_as_ne 40 MG eded} Metoprolol Metoprolol No Metoprolol Succinate Succinate Succinate ER 50 MG ER 50 MG ER 50 MG DULoxetine DULoxetine No 1{capsu BID DULoxetine HCl 60 MG HCl 60 MG le} HCl 60 MG hydroCHLORO hydroCHLORO No hydroCHLOR thiazide 25 thiazide 25 Othiazide MG MG 25 MG Lovastatin Lovastatin No Lovastatin 20 MG 20 MG 20 MG FreeStyle FreeStyle No FreeStyle Ed[place]ige 14 Edwige 14 [place] 14 Day Sensor Day Sensor Day Sensor - - - Nateglinide Nateglinide No Nateglinid 60 MG 60 MG e 60 MG Zantac 150 Zantac 150 No 1{table QD Zantac 150 MG MG t_at_be MG dtime} Finasteride Finasteride No 1{table QD Finasterid 5 MG 5 MG t} e 5 MG Aspir-81 81 Aspir-81 81 No 1{table QD Aspir-81 MG MG t} 81 MG Gabapentin Gabapentin No Gabapentin 300 MG 300 MG 300 MG Ketoconazol Ketoconazol No 5{ml} Ketoconazo e 2 % e 2 % le 2 % FreeStyle FreeStyle No QD FreeStyle Edwige 14 Edwige 14 Edwige 14 Day Sensor Day Sensor Day Sensor - - - Tamsulosin Tamsulosin No Tamsulosin HCl 0.4 MG HCl 0.4 MG HCl 0.4 MG Metformin Metformin No 1{table BID Metformin HCl 1000 MG HCl 1000 MG t_with_ HCl 1000 meals} MG Ciclopirox Ciclopirox No 1{appli BID Ciclopirox 0.77 % 0.77 % cation} 0.77 % Famotidine Famotidine No 1{table QD Famotidine 40 MG 40 MG t_as_ne 40 MG eded} Metoprolol Metoprolol No Metoprolol Succinate Succinate Succinate ER 50 MG ER 50 MG ER 50 MG DULoxetine DULoxetine No 1{capsu BID DULoxetine HCl 60 MG HCl 60 MG le} HCl 60 MG hydroCHLORO hydroCHLORO No hydroCHLOR thiazide 25 thiazide 25 Othiazide MG MG 25 MG Lovastatin Lovastatin No Lovastatin 20 MG 20 MG 20 MG FreeStyle FreeStyle No FreeStyle Edwige 14 Edwige 14 Ed[place]ige 14 Day Sensor Day Sensor Day Sensor - - - Nateglinide Nateglinide No Nateglinid 60 MG 60 MG e 60 MG Zantac 150 Zantac 150 No 1{table QD Zantac 150 MG MG t_at_be MG dtime} Finasteride Finasteride No 1{table QD Finasterid 5 MG 5 MG t} e 5 MG Aspir-81 81 Aspir-81 81 No 1{table QD Aspir-81 MG MG t} 81 MG Gabapentin Gabapentin No Gabapentin 300 MG 300 MG 300 MG Metformin Metformin No 1{table BID Metformin HCl 1000 MG HCl 1000 MG t_with_ HCl 1000 meals} MG hydroCHLORO hydroCHLORO No hydroCHLOR thiazide 25 thiazide 25 Othiazide MG MG 25 MG Lovastatin Lovastatin No Lovastatin 20 MG 20 MG 20 MG Ciclopirox Ciclopirox No 1{appli BID Ciclopirox 0.77 % 0.77 % cation} 0.77 % Famotidine Famotidine No 1{table QD Famotidine 40 MG 40 MG t_as_ne 40 MG eded} Metoprolol Metoprolol No Metoprolol Succinate Succinate Succinate ER 50 MG ER 50 MG ER 50 MG Zantac 150 Zantac 150 No 1{table QD Zantac 150 MG MG t_at_be MG dtime} DULoxetine DULoxetine No 1{capsu BID DULoxetine HCl 60 MG HCl 60 MG le} HCl 60 MG Aspir-81 81 Aspir-81 81 No 1{table QD Aspir-81 MG MG t} 81 MG FreeStyle FreeStyle No QD FreeStyle Edwige 14 Edwige 14 [place] 14 Day Sensor Day Sensor Day Sensor - - - Tamsulosin Tamsulosin No Tamsulosin HCl 0.4 MG HCl 0.4 MG HCl 0.4 MG Gabapentin Gabapentin No Gabapentin 300 MG 300 MG 300 MG Finasteride Finasteride No 1{table QD Finasterid 5 MG 5 MG t} e 5 MG Nateglinide Nateglinide No Nateglinid 60 MG 60 MG e 60 MG Ketoconazol Ketoconazol No 5{ml} Ketoconazo e 2 % e 2 % le 2 % Metformin Metformin No 1{table BID Metformin HCl 1000 MG HCl 1000 MG t_with_ HCl 1000 meals} MG hydroCHLORO hydroCHLORO No hydroCHLOR thiazide 25 thiazide 25 Othiazide MG MG 25 MG Lovastatin Lovastatin No Lovastatin 20 MG 20 MG 20 MG Ciclopirox Ciclopirox No 1{appli BID Ciclopirox 0.77 % 0.77 % cation} 0.77 % Famotidine Famotidine No 1{table QD Famotidine 40 MG 40 MG t_as_ne 40 MG eded} Metoprolol Metoprolol No Metoprolol Succinate Succinate Succinate ER 50 MG ER 50 MG ER 50 MG Zantac 150 Zantac 150 No 1{table QD Zantac 150 MG MG t_at_be MG dtime} DULoxetine DULoxetine No 1{capsu BID DULoxetine HCl 60 MG HCl 60 MG le} HCl 60 MG Aspir-81 81 Aspir-81 81 No 1{table QD Aspir-81 MG MG t} 81 MG FreeStyle FreeStyle No QD FreeStyle Edwige 14 Edwige 14 Ed[place] 14 Day Sensor Day Sensor Day Sensor - - - Tamsulosin Tamsulosin No Tamsulosin HCl 0.4 MG HCl 0.4 MG HCl 0.4 MG Gabapentin Gabapentin No Gabapentin 300 MG 300 MG 300 MG Finasteride Finasteride No 1{table QD Finasterid 5 MG 5 MG t} e 5 MG Nateglinide Nateglinide No Nateglinid 60 MG 60 MG e 60 MG Ketoconazol Ketoconazol No 5{ml} Ketoconazo e 2 % e 2 % le 2 % Zantac 150 Zantac 150 No 1{table QD Zantac 150 MG MG t_at_be MG dtime} Famotidine Famotidine No 1{table QD Famotidine 40 MG 40 MG t_as_ne 40 MG eded} Lovastatin Lovastatin No Lovastatin 20 MG 20 MG 20 MG Ciclopirox Ciclopirox No 1{appli BID Ciclopirox 0.77 % 0.77 % cation} 0.77 % Tamsulosin Tamsulosin No Tamsulosin HCl 0.4 MG HCl 0.4 MG HCl 0.4 MG Aspir-81 81 Aspir-81 81 No 1{table QD Aspir-81 MG MG t} 81 MG Gabapentin Gabapentin No Gabapentin 300 MG 300 MG 300 MG DULoxetine DULoxetine No 1{capsu BID DULoxetine HCl 60 MG HCl 60 MG le} HCl 60 MG Ketoconazol Ketoconazol No 5{ml} Ketoconazo e 2 % e 2 % le 2 % hydroCHLORO hydroCHLORO No hydroCHLOR thiazide 25 thiazide 25 Othiazide MG MG 25 MG Nateglinide Nateglinide No Nateglinid 60 MG 60 MG e 60 MG FreeStyle FreeStyle No FreeStyle Edwige 14 Edwige 14 [place] 14 Day Sensor Day Sensor Day Sensor - - - Metformin Metformin No 1{table BID Metformin HCl 1000 MG HCl 1000 MG t_with_ HCl 1000 meals} MG HYDROcodone HYDROcodone No 1{table BID HYDROcodon -Acetaminop -Acetaminop t_as_ne e-Acetamin hen 7.5-325 hen 7.5-325 eded} ophen MG MG 7.5-325 MG Finasteride Finasteride No 1{table QD Finasterid 5 MG 5 MG t} e 5 MG Metoprolol Metoprolol No Metoprolol Succinate Succinate Succinate ER 50 MG ER 50 MG ER 50 MG Metoprolol Metoprolol No Metoprolol Succinate Succinate Succinate ER 50 MG ER 50 MG ER 50 MG Tamsulosin Tamsulosin No Tamsulosin HCl 0.4 MG HCl 0.4 MG HCl 0.4 MG Metformin Metformin No 1{table BID Metformin HCl 1000 MG HCl 1000 MG t_with_ HCl 1000 meals} MG FreeStyle FreeStyle No FreeStyle Edwige 14 Edwige 14 [place] 14 Day Sensor Day Sensor Day Sensor - - - Nateglinide Nateglinide No Nateglinid 60 MG 60 MG e 60 MG Aspir-81 81 Aspir-81 81 No 1{table QD Aspir-81 MG MG t} 81 MG DULoxetine DULoxetine No 1{capsu BID DULoxetine HCl 60 MG HCl 60 MG le} HCl 60 MG HYDROcodone HYDROcodone No 1{table BID HYDROcodon -Acetaminop -Acetaminop t_as_ne e-Acetamin hen 7.5-325 hen 7.5-325 eded} ophen MG MG 7.5-325 MG Ciclopirox Ciclopirox No 1{appli BID Ciclopirox 0.77 % 0.77 % cation} 0.77 % hydroCHLORO hydroCHLORO No hydroCHLOR thiazide 25 thiazide 25 Othiazide MG MG 25 MG Ketoconazol Ketoconazol No 5{ml} Ketoconazo e 2 % e 2 % le 2 % Finasteride Finasteride No 1{table QD Finasterid 5 MG 5 MG t} e 5 MG Lovastatin Lovastatin No Lovastatin 20 MG 20 MG 20 MG Famotidine Famotidine No Famotidine 40 MG 40 MG 40 MG Gabapentin Gabapentin No Gabapentin 300 MG 300 MG 300 MG Zantac 150 Zantac 150 No 1{table QD Zantac 150 MG MG t_at_be MG dtime} Ketoconazol Ketoconazol No 5{ml} Ketoconazo e 2 % e 2 % le 2 % FreeStyle FreeStyle No QD FreeStyle Edwige 14 Edwige 14 Ed[place]ige 14 Day Sensor Day Sensor Day Sensor - - - Tamsulosin Tamsulosin No Tamsulosin HCl 0.4 MG HCl 0.4 MG HCl 0.4 MG Metformin Metformin No 1{table BID Metformin HCl 1000 MG HCl 1000 MG t_with_ HCl 1000 meals} MG Ciclopirox Ciclopirox No 1{appli BID Ciclopirox 0.77 % 0.77 % cation} 0.77 % Famotidine Famotidine No 1{table QD Famotidine 40 MG 40 MG t_as_ne 40 MG eded} Metoprolol Metoprolol No Metoprolol Succinate Succinate Succinate ER 50 MG ER 50 MG ER 50 MG DULoxetine DULoxetine No 1{capsu BID DULoxetine HCl 60 MG HCl 60 MG le} HCl 60 MG hydroCHLORO hydroCHLORO No hydroCHLOR thiazide 25 thiazide 25 Othiazide MG MG 25 MG Lovastatin Lovastatin No Lovastatin 20 MG 20 MG 20 MG FreeStyle FreeStyle No FreeStyle Edwige 14 Edwige 14 [place] 14 Day Sensor Day Sensor Day Sensor - - - Nateglinide Nateglinide No Nateglinid 60 MG 60 MG e 60 MG Zantac 150 Zantac 150 No 1{table QD Zantac 150 MG MG t_at_be MG dtime} Finasteride Finasteride No 1{table QD Finasterid 5 MG 5 MG t} e 5 MG Aspir-81 81 Aspir-81 81 No 1{table QD Aspir-81 MG MG t} 81 MG Gabapentin Gabapentin No Gabapentin 300 MG 300 MG 300 MG Tamsulosin Tamsulosin No Na Alvarez take one [facility] HCl HCl 01-13 [facility]:00 mouth at - [facility] :00 bedtime [facility] Immunizations Ordered Immunization Filled Immunization Date Status Commen ts Source Name Name FLUZONE HIGH DOSE FLUZONE HIGH DOSE 2022-04-08 Completed [facility] - OVER 65 OVER 65 15:23:00 [facility] FLUZONE HIGH DOSE FLUZONE HIGH DOSE 2022-04-08 Completed [facility] - OVER 65 OVER 65 15:23:00 [facility] FLUZONE HIGH DOSE FLUZONE HIGH DOSE 2022-04-08 Completed [facility] - OVER 65 OVER 65 15:23:00 [facility] FLUZONE HIGH DOSE FLUZONE HIGH DOSE 2022-04-08 Completed [facility] - OVER 65 OVER 65 15:23:00 [facility] FLUZONE HIGH DOSE FLUZONE HIGH DOSE 2022-04-08 Completed [facility] - OVER 65 OVER 65 15:23:00 [facility] FLUZONE HIGH DOSE FLUZONE HIGH DOSE 2022-04-08 Completed [facility] - OVER 65 OVER 65 15:23:00 [facility] FLUZONE HIGH DOSE FLUZONE HIGH DOSE 2022-04-08 Completed [facility] - OVER 65 OVER 65 15:23:00 [facility] Moderna COVID-19 Moderna COVID-19 2022-04-03 Completed [facility] - Vaccine, Bivalent Vaccine, Bivalent 15:59:00 [facility] Moderna COVID-19 Moderna COVID-19 2022-04-03 Completed [facility] - Vaccine, Bivalent Vaccine, Bivalent 15:59:00 [facility] Moderna COVID-19 Moderna COVID-19 2022-04-03 Completed [facility] - Vaccine, Bivalent Vaccine, Bivalent 15:59:00 [facility] Moderna COVID-19 Moderna COVID-19 2022-04-03 Completed [facility] - Vaccine, Bivalent Vaccine, Bivalent 15:59:00 [facility] Moderna COVID-19 Moderna COVID-19 2022-04-03 Completed [facility] - Vaccine, Bivalent Vaccine, Bivalent 15:59:00 [facility] Moderna COVID-19 Moderna COVID-19 2022-04-03 Completed [facility] - Vaccine, Bivalent Vaccine, Bivalent 15:59:00 [facility] Moderna COVID-19 Moderna COVID-19 2022-04-03 Completed [facility] - Vaccine, Bivalent Vaccine, Bivalent 15:59:00 [facility] Moderna COVID-19 Moderna COVID-19 2020-09-14 Completed [facility] - Vaccine Vaccine 14:50:00 [facility] Moderna COVID-19 Moderna COVID-19 2020-09-14 Completed [facility] - Vaccine Vaccine 14:50:00 [facility] Moderna COVID-19 Moderna COVID-19 2020-09-14 Completed [facility] - Vaccine Vaccine 14:50:00 [facility] Moderna COVID-19 Moderna COVID-19 2020-09-14 Completed [facility] - Vaccine Vaccine 14:50:00 [facility] Moderna COVID-19 Moderna COVID-19 2020-09-14 Completed [facility] - Vaccine Vaccine 14:50:00 [facility] Moderna COVID-19 Moderna COVID-19 2020-09-14 Completed [facility] - Vaccine Vaccine 14:50:00 [facility] Moderna COVID-19 Moderna COVID-19 2020-09-14 Completed [facility] - Vaccine Vaccine 14:50:00 [facility] Moderna COVID-19 Moderna COVID-19 2020-09-14 Completed [facility] - Vaccine Vaccine 14:50:00 [facility] Moderna COVID-19 Moderna COVID-19 2020-09-14 Completed [facility] - Vaccine Vaccine 14:50:00 [facility] Moderna COVID-19 Moderna COVID-19 2020-09-14 Completed [facility] - Vaccine Vaccine 14:50:00 [facility] Moderna COVID-19 Moderna COVID-19 2020-09-14 Completed [facility] - Vaccine Vaccine 14:50:00 [facility] Moderna COVID-19 Moderna COVID-19 2020-09-14 Completed [facility] Vaccine Vaccine 14:50:00 [facility] Moderna COVID-19 Moderna COVID-19 2020-09-14 Completed [facility] - Vaccine Vaccine 14:50:00 [facility] Moderna COVID-19 Moderna COVID-19 2020-09-14 Completed [facility] - Vaccine Vaccine 14:50:00 [facility] Moderna COVID-19 Moderna COVID-19 2020-09-14 Completed [facility] - Vaccine Vaccine 14:50:00 [facility] Moderna COVID-19 Moderna COVID-19 2020-08-17 Completed [facility] - Vaccine Vaccine 14:50:00 [facility] Moderna COVID-19 Moderna COVID-19 2020-08-17 Completed [facility] - Vaccine Vaccine 14:50:00 [facility] Moderna COVID-19 Moderna COVID-19 2020-08-17 Completed [facility] - Vaccine Vaccine 14:50:00 [facility] Moderna COVID-19 Moderna COVID-19 2020-08-17 Completed [facility] - Vaccine Vaccine 14:50:00 [facility] Moderna COVID-19 Moderna COVID-19 2020-08-17 Completed [facility] - Vaccine Vaccine 14:50:00 [facility] Moderna COVID-19 Moderna COVID-19 2020-08-17 Completed [facility] - Vaccine Vaccine 14:50:00 [facility] Moderna COVID-19 Moderna COVID-19 2020-08-17 Completed [facility] - Vaccine Vaccine 14:50:00 [facility] Moderna COVID-19 Moderna COVID-19 2020-08-17 Completed [facility] - Vaccine Vaccine 14:50:00 [facility] Moderna COVID-19 Moderna COVID-19 2020-08-17 Completed [facility] - Vaccine Vaccine 14:50:00 [facility] Moderna COVID-19 Moderna COVID-19 2020-08-17 Completed [facility] - Vaccine Vaccine 14:50:00 [facility] Moderna COVID-19 Moderna COVID-19 2020-08-17 Completed [facility] - Vaccine Vaccine 14:50:00 [facility] Moderna COVID-19 Moderna COVID-19 2020-08-17 Completed [facility] - Vaccine Vaccine 14:50:00 [facility] Moderna COVID-19 Moderna COVID-19 2020-08-17 Completed [facility] - Vaccine Vaccine 14:50:00 [facility] Moderna COVID-19 Moderna COVID-19 2020-08-17 Completed [facility] - Vaccine Vaccine 14:50:00 [facility] Moderna COVID-19 Moderna COVID-19 2020-08-17 Completed [facility] Vaccine Vaccine 14:50:00 [facility] FLUZONE HIGH DOSE FLUZONE HIGH DOSE 2018-04-22 Completed [facility] - OVER 65 OVER 65 09:29:00 [facility] FLUZONE HIGH DOSE FLUZONE HIGH DOSE 2018-04-22 Completed [facility] - OVER 65 OVER 65 09:29:00 [facility] FLUZONE HIGH DOSE FLUZONE HIGH DOSE 2018-04-22 Completed [facility] - OVER 65 OVER 65 09:29:00 [facility] FLUZONE HIGH DOSE FLUZONE HIGH DOSE 2018-04-22 Completed [facility] - OVER 65 OVER 65 09:29:00 [facility] FLUZONE HIGH DOSE FLUZONE HIGH DOSE 2018-04-22 Completed [facility] - OVER 65 OVER 65 09:29:00 [facility] FLUZONE HIGH DOSE FLUZONE HIGH DOSE 2018-04-22 Completed [facility] - OVER 65 OVER 65 09:29:00 [facility] FLUZONE HIGH DOSE FLUZONE HIGH DOSE 2018-04-22 Completed [facility] - OVER 65 OVER 65 09:29:00 [facility] FLUZONE HIGH DOSE FLUZONE HIGH DOSE 2018-04-22 Completed [facility] - OVER 65 OVER 65 09:29:00 [facility] FLUZONE HIGH DOSE FLUZONE HIGH DOSE 2018-04-22 Completed [facility] - OVER 65 OVER 65 09:29:00 [facility] FLUZONE HIGH DOSE FLUZONE HIGH DOSE 2018-04-22 Completed [facility] - OVER 65 OVER 65 09:29:00 [facility] FLUZONE HIGH DOSE FLUZONE HIGH DOSE 2018-04-22 Completed [facility] - OVER 65 OVER 65 09:29:00 [facility] FLUZONE HIGH DOSE FLUZONE HIGH DOSE 2018-04-22 Completed [facility] - OVER 65 OVER 65 09:29:00 [facility] FLUZONE HIGH DOSE FLUZONE HIGH DOSE 2018-04-22 Completed [facility] - OVER 65 OVER 65 09:29:00 [facility] FLUZONE HIGH DOSE FLUZONE HIGH DOSE 2018-04-22 Completed [facility] - OVER 65 OVER 65 09:29:00 [facility] FLUZONE HIGH DOSE FLUZONE HIGH DOSE 2018-04-22 Completed [facility] - OVER 65 OVER 65 09:29:00 [facility] Pneumovax (PPSV23) Pneumovax (PPSV23) 2017-10-08 Completed [facility] - 12:08:00 [facility] Pneumovax (PPSV23) Pneumovax (PPSV23) 2017-10-08 Completed [facility] - 12:08:00 [facility] Pneumovax (PPSV23) Pneumovax (PPSV23) 2017-10-08 Completed [facility] - 12:08:00 [facility] Pneumovax (PPSV23) Pneumovax (PPSV23) 2017-10-08 Completed [facility] - 12:08:00 [facility] Pneumovax (PPSV23) Pneumovax (PPSV23) 2017-10-08 Completed [facility] - 12:08:00 [facility] Pneumovax (PPSV23) Pneumovax (PPSV23) 2017-10-08 Completed [facility] - 12:08:00 [facility] Pneumovax (PPSV23) Pneumovax (PPSV23) 2017-10-08 Completed [facility] - 12:08:00 [facility] Pneumovax (PPSV23) Pneumovax (PPSV23) 2017-10-08 Completed [facility] - 12:08:00 [facility] Pneumovax (PPSV23) Pneumovax (PPSV23) 2017-10-08 Completed [facility] - 12:08:00 [facility] Pneumovax (PPSV23) Pneumovax (PPSV23) 2017-10-08 Completed [facility] - 12:08:00 [facility] Pneumovax (PPSV23) Pneumovax (PPSV23) 2017-10-08 Completed [facility] - 12:08:00 [facility] Pneumovax (PPSV23) Pneumovax (PPSV23) 2017-10-08 Completed [facility] - 12:08:00 [facility] Pneumovax (PPSV23) Pneumovax (PPSV23) 2017-10-08 Completed [facility] - 12:08:00 [facility] Pneumovax (PPSV23) Pneumovax (PPSV23) 2017-10-08 Completed [facility] - 12:08:00 [facility] Pneumovax (PPSV23) Pneumovax (PPSV23) 2017-10-08 Completed [facility] - 12:08:00 [facility] influenza virus 2013-04-13 Completed [facility], inactivated 23:36:00 [facility] influenza virus 2013-04-13 Completed [facility], inactivated 23:36:00 [facility] Vital Signs Vital Name Observation Time Observation Value Comments Source height 2022-04-08 14:20:00 68.25 [in_i] [facility] weight 2022-04-08 14:20:00 276 [lb_av] [facility] temperature 2022-04-08 14:20:00 97.2 [degF] [facility] bmi 2022-04-08 14:20:00 41.65 kg/m2 [facility] oximetry 2022-04-08 14:20:00 95 % [facility] respiratory rate 2022-04-08 14:20:00 18 /min Comm on [facility] blood pressure 2022-04-08 14:20:00 138 mm[Hg] [facility] - systolic [facility] blood pressure 2022-04-08 14:20:00 82 mm[Hg] [facility] - diastolic [facility] height 2022-04-08 15:00:00 68.25 [in_i] [facility] weight 2022-04-08 15:00:00 276 [lb_av] [facility] temperature 2022-04-08 15:00:00 97.2 [degF] Common S pirit [facility] bmi 2022-04-08 15:00:00 41.65 kg/m2 Common S [facility] oximetry 2022-04-08 15:00:00 95 % Common [facility] respiratory rate 2022-04-08 15:00:00 18 /min Comm on [facility] blood pressure 2022-04-08 15:00:00 138 mm[Hg] Common [facility] - systolic [facility] blood pressure 2022-04-08 15:00:00 82 mm[Hg] [facility] - diastolic [facility] height 2021-12-23 11:20:00 68.25 [in_i] Common [facility] weight 2021-12-23 11:20:00 278.4 [lb_av] Common [facility] temperature 2021-12-23 11:20:00 97.2 [degF] Common S pirit [facility] bmi 2021-12-23 11:20:00 42.02 kg/m2 [facility] oximetry 2021-12-23 11:20:00 98 % [facility] 2021-12-23 11:20:00 16 /min Comm on [facility] blood pressure 2021-12-23 11:20:00 139 mm[Hg] [facility] - systolic [facility] blood pressure 2021-12-23 11:20:00 73 mm[Hg] [facility] - diastolic [facility] height 2021-09-20 11:20:00 68.25 [in_i] Common S pirit [facility] weight 2021-09-20 11:20:00 265.6 [lb_av] Common [facility] temperature 2021-09-20 11:20:00 97.3 [degF] Common S pirit [facility] bmi 2021-09-20 11:20:00 40.08 kg/m2 [facility] oximetry 2021-09-20 11:20:00 95 % Common [facility] respiratory rate 2021-09-20 11:20:00 18 /min Comm on [facility] blood pressure 2021-09-20 11:20:00 131 mm[Hg] Common [facility] - systolic [facility] blood pressure 2021-09-20 11:20:00 68 mm[Hg] Common [facility] - diastolic [facility] height 2021-06-21 11:20:00 68.25 [in_i] Common [facility] weight 2021-06-21 11:20:00 272.0 [lb_av] Common [facility] temperature 2021-06-21 11:20:00 96.9 [degF] Common [facility] bmi 2021-06-21 11:20:00 41.05 kg/m2 Common [facility] oximetry 2021-06-21 11:20:00 94 % Common [facility] respiratory rate 2021-06-21 11:20:00 16 /min Comm on [facility] blood pressure 2021-06-21 11:20:00 120 mm[Hg] [facility] - systolic [facility] blood pressure 2021-06-21 11:20:00 68 mm[Hg] Common [facility] - diastolic [facility] Height 2022-05-26 20:33:00 5 [ft_i] [facility] Weight 2022-05-26 20:33:00 [facility] 2022-05-26 20:33:00 Chanell Cardozo Height 2021-12-02 16:17:00 177.8 cm [facility] Weight 2021-12-02 16:17:00 [facility] [place] BMI Calculated 2021-12-02 16:17:00 [facility] [place] Height 2021-09-09 15:37:00 177.8 cm [facility] Weight 2021-09-09 15:37:00 [facility] BMI Calculated 2021-09-09 15:37:00 [facility] [place] Height 2021-08-05 16:49:00 177.8 cm [facility] [place] Weight 2021-08-05 16:49:00 [facility] [place] BMI Calculated 2021-08-05 16:49:00 [facility] Respitory Rate 2013-04-15 20:50:00 [facility] [place] Temperature Oral (F) 2013-04-15 20:50:00 98.7 F [facility] Heart Rate 2013-04-15 20:50:00 [facility] [place] Systolic (mm Hg) 2013-04-15 20:50:00 [place] [facility] [place] Diastolic (mm Hg) 2013-04-15 20:50:00 Mem orial [facility] Temperature Oral (F) 2013-04-15 13:08:00 98.1 F [facility] [place] Diastolic (mm Hg) 2013-04-15 13:08:00 [facility] [place] Heart Rate 2013-04-15 13:08:00 [facility] [place] Respitory Rate 2013-04-15 13:08:00 Mem[facility] Systolic (mm Hg) 2013-04-15 13:08:00 [place] [facility] Diastolic (mm Hg) 2013-04-15 09:19:00 [facility] [place] Respitory Rate 2013-04-15 09:19:00 [facility] Systolic (mm Hg) 2013-04-15 09:19:00 [place] [facility] [place] Heart Rate 2013-04-15 09:19:00 [facility] [place] Temperature Oral (F) 2013-04-15 09:19:00 97.4 F [facility] [place] Height 2013-04-11 14:11:00 175.26 cm [facility] [place] Weight 2013-04-11 14:11:00 [facility] Weight 2013-04-11 04:27:00 [facility] [place] Height 2013-04-11 04:27:00 175.26 cm [facility] [place] Procedures Procedure Date / Time Performing Clinician Source Performed XR KUB 2021-08-30 16:44:26 Requisition, Paper [facility] US RETROPERITONEAL 2021-08-30 16:20:09 [facility] ESWL (extracorporeal [facility] shockwave lithotripsy) of ureteric calculus Encounters Start End Encounter Admission Attending Care Care Encounter Source Date/Time Date/Time Type Type Clinicians Facility Department ID 2022-09-10 Outpatient Beard, STLMLC STLMLC [id number] Common 13:27:00 Yesica [id number] [facility] 2022-08-27 Outpatient Beard, STLMLC STLMLC [id number] Common 12:36:00 Yesica [id number] [facility] 2022-08-14 Outpatient Beard, STLMLC STLMLC [id number] Common 10:30:00 Yesica [id number] [facility] 2022-05-27 Outpatient Alvarez, Na STLMLC STLMLC [id number] Common 13:37:00 [facility] 2022-04-07 Outpatient Alvarez, Na STLMLC STLMLC [id number] Common 09:19:01 [facility] 2022-03-25 Outpatient Alvarez, Na STLMLC STLMLC [id number] Common 09:26:00 [facility] 2022-03-21 Outpatient Alvarez, Na STLMLC STLMLC [id number] Common 09:04:01 [facility] 2021-12-18 Outpatient Alvarez, Na STLMLC STLMLC [id number] Common 15:36:01 [facility] 2021-08-07 Outpatient Alvarez, Na STLMLC STLMLC [id number] Common 14:24:19 [facility] 2021-08-07 Outpatient Alvarez, Na STLMLC STLMLC [id number] Common 14:23:24 [id number] [facility] 2021-08-07 Outpatient Alvarez, Na STLMLC STLMLC [id number] Common 13:47:55 [id number] [facility] 2021-08-07 Outpatient Alvarez, Na STLMLC STLMLC [id number] Common 13:12:19 [id number] [facility] 2021-08-07 Outpatient Alvarez, Na STLMLC STLMLC [id number] Common 13:10:50 [id number] [facility] 2021-08-07 Outpatient Alvarez, Na STLMLC STLMLC [id number] Common 13:05:11 [id number] [facility] 2021-08-07 Outpatient Alvarez, Na STLMLC STLMLC [id number] Common 12:40:43 [id number] [facility] 2021-08-07 Outpatient Alvarez, Na STLMLC STLMLC [id number] Common 12:37:52 05724 [facility] 2021-08-07 Outpatient ALVAREZ, N STLMLC STLMLC [id number] Common 12:36:37 [id number] [facility] 2021-08-07 Outpatient ALVAREZ, N STLMLC STLMLC [id number] Common 12:10:40 [id number] [facility] 2021-08-07 Outpatient ALVAREZ, N STLMLC STLMLC [id number] Common 11:48:40 [id number] [facility] 2021-08-07 Outpatient ALVAREZ, N STLMLC STLMLC [id number] Common 11:47:02 [id number] [facility] 2021-08-07 Outpatient ALVAREZ, N STLMLC STLMLC [id number] Common 11:24:47 [id number] [facility] 2021-08-07 Outpatient ALVAREZ, N STLMLC STLMLC [id number] Common 11:17:47 [id number] [facility] 2021-08-07 Outpatient ALVAREZ, N STLMLC STLMLC [id number] Common 11:16:49 [id number] [facility] 2021-08-07 Outpatient ALVAREZ, N STLMLC STLMLC [id number] Common 11:09:04 81504 [facility] 2021-08-07 Outpatient ALVAREZ, N STLMLC STLMLC [id number] Common 11:00:25 [id number] [facility] 2021-08-07 Outpatient KIM, N STLMLC STLMLC [id number] Common 11:00:08 [id number] [facility] 2023-01-05 2023-01-05 Outpatient MHIE MHIE [id number] [facility] 14:15:00 14:15:00 05 dasha John 2022-11-17 2022-11-17 Outpatient MHIE MHIE [id number] Memoria 14:40:00 14:40:00 04 dasha Lopez 2022-11-17 2022-11-17 Outpatient MHIE MHIE [id number] [facility] 14:00:00 14:00:00 06 dasha Lopez 2022-07-15 2022-07-15 (TEL) STLC STLMLC [id number] Co mmon 00:00:00 00:00:00 [facility] 2022-05-26 2022-05-27 Outpatient MHIE MHMG Multi [id number] Memoria 20:40:00 05:59:59 Specialty 03 [facility] 2022-05-27 2022-05-27 OFFICE STLMLC STLMLC [id number] Co mmon 00:00:00 00:00:00 VISIT [facility] LEVEL 1 [facility] 2022-05-26 2022-05-26 Outpatient Chelo, MHMG MHMG [id number] 14:40:00 23:59:59 [facility] 2022-05-26 2022-05-26 Outpatient MHIE MHIE [id number] Memoria 14:40:00 14:40:00 03 dasha Lopez 2022-05-01 2022-05-01 (TEL) STLMLC STLMLC [id number] Co mmon 00:00:00 00:00:00 [facility] 2022-04-09 2022-04-09 (TEL) STLMLC STLMLC [id number] Co mmon 00:00:00 00:00:00 [facility] - [facility] 2022-04-08 2022-04-08 OFFICE STLMLC STLMLC [id number] Co mmon 00:00:00 00:00:00 VISIT EST Spir it PT LEVEL 3 - [facility] 2022-04-08 2022-04-08 SUB ANNUAL STLMLC STLMLC [id number] Common 00:00:00 00:00:00 MCR [facility] WELLNESS - VISIT [facility] 2022-01-21 2022-01-21 (TEL) STLMLC STLMLC [id number] Co mmon 00:00:00 00:00:00 [facility] 2022-01-15 2022-01-15 (TEL) STLMLC STLMLC [id number] Co mmon 00:00:00 00:00:00 [facility] - [facility] 2021-12-23 2021-12-23 OFFICE STLMLC STLMLC [id number] Co mmon 00:00:00 00:00:00 VISIT Spirit ESTAB PT - [facility] LEVEL 4 [facility] 2021-12-02 2021-12-03 Outpatient nullFlavo MHMG Multi 40 [id number] Memoria 16:00:00 04:59:59 r Specialty 02 [facility] 2021-12-02 2021-12-02 Outpatient Luzer, MHMG MHMG [id number] 11:00:00 23:59:59 Ivory L 02 2021-12-02 2021-12-02 Outpatient MHIE MHIE [id number] Memoria 11:00:00 11:00:00 02 l John 2021-11-29 2021-11-29 (TEL) STLMLC STLMLC [id number] Co mmon 00:00:00 00:00:00 Spirit [facility] 2021-09-20 2021-09-20 OFFICE STLMLC STLMLC [id number] Co mmon 00:00:00 00:00:00 VISIT Spirit ESTAB PT - [facility] LEVEL 4 [facility] 2021-09-09 2021-09-10 Outpatient nullFlavo [facility] Multi 40 [id number] Memoria 20:00:00 05:59:59 r Specialty 01 l [facility] Teddy harris [place] 2021-09-09 2021-09-09 Outpatient LORAINE Whitney [facility] [id number] 14:00:00 23:59:59 Ivory L 2021-09-09 2021-09-09 Outpatient DANIELLE SANTOS [id number] Memoria 14:00:00 14:00:00 01 dasha Lopez 2021-08-30 2021-08-30 Outpatient R RADIOLOGY [facility] [id number] Univers 09:49:54 23:59:00 ity of [facility] 2021-08-30 2021-08-30 [facility] Radiology [facility] [id number] Univers 09:49:54 23:59:00 Encounter [place] [id number] ity of [place] [id number] [facility] [id number] [place] [id number] [place] 2021-08-30 2021-08-30 [facility] Radiology [facility] [id number] Univers 09:48:55 09:48:55 Encounter [place] [id number] ity of [place] [id number] [facility] [id number] [place] [id number] [place] 2021-08-05 2021-08-06 Outpatient nullFlavo [facility] Multi 40 [id number] Memoria 17:00:00 05:59:59 r Specialty 00 l [facility] Teddy harris [place] 2021-08-05 2021-08-05 Outpatient LORAINE Whitney [facility] [id number] 11:00:00 23:59:59 Iv[place] L 2021-08-05 2021-08-05 Outpatient DANIELLE SANTOS [id number] Memoria 11:00:00 11:00:00 00 dasha Lopez 2021-06-21 2021-06-21 OFFICE STLMLC STLMLC [id number] Co mmon 00:00:00 00:00:00 VISIT Bob [place] PT - [facility] LEVEL 4 [facility] 2021-06-18 2021-06-18 (TEL) STLMLC STLMLC [id number] Co mmon 00:00:00 00:00:00 [facility] - [facility] 2021-04-29 2021-04-29 (TEL) STLMLC STLMLC [id number] Co mmon 00:00:00 00:00:00 [facility] 2021-03-21 2021-03-21 Outpatient STLMLC STLMLC [id number] Common 00:00:00 00:00:00 [facility] 2021-01-08 2021-01-08 Outpatient STLMLC STLMLC [id number] Common 00:00:00 00:00:00 [facility] 2020-12-18 2020-12-18 Outpatient STLMLC STLMLC [id number] Common 00:00:00 00:00:00 [facility] 2020-12-18 2020-12-18 Outpatient STLMLC STLMLC [id number] Common 00:00:00 00:00:00 [facility] 2020-09-19 2020-09-19 Outpatient STLMLC STLMLC [id number] Common 00:00:00 00:00:00 [facility] 2020-09-18 2020-09-18 Outpatient STLMLC STLMLC [id number] Common 00:00:00 00:00:00 [facility] 2020-06-25 2020-06-25 Outpatient STLMLC STLMLC [id number] Common 00:00:00 00:00:00 [facility] 2020-06-21 2020-06-21 Outpatient STLMLC STLMLC [id number] Common 00:00:00 00:00:00 [facility] 2020-06-19 2020-06-19 Outpatient STLMLC STLMLC [id number] Common 00:00:00 00:00:00 [facility] 2020-06-03 2020-06-03 Outpatient STLMLC STLMLC [id number] Common 00:00:00 00:00:00 [facility] 2020-06-01 2020-06-01 Outpatient STLMLC STLMLC [id number] Common 00:00:00 00:00:00 [facility] 2020-05-31 2020-05-31 Outpatient STLMLC STLMLC [id number] Common 00:00:00 00:00:00 [facility] 2020-05-31 2020-05-31 Outpatient STLMLC STLMLC [id number] Common 00:00:00 00:00:00 [facility] 2020-05-21 2020-05-21 Outpatient STLMLC STLMLC [id number] Common 00:00:00 00:00:00 [facility] 2020-03-30 2020-03-30 Outpatient STLMLC STLMLC [id number] Common 00:00:00 00:00:00 [facility] 2020-03-29 2020-03-29 [facility] [id number] Common 09:14:00 09:14:[address] [facility] 2020-03-13 2020-03-13 [facility] [id number] Common 11:40:00 11:40:[address] [facility] 2020-02-09 2020-02-09 [facility] [id number] Common 10:45:00 10:45:[address] [facility] 2020-01-23 2020-01-23 [facility] [id number] Common 13:00:00 13:00:00 t Specialty/U Sp devin Specialty rology - [facility] /[facility] Clinic [facility] 2020-01-16 2020-01-16 [facility] [id number] Common 15:36:00 15:36:[address] [facility] 2019-12-26 2019-12-26 [facility] [id number] Common 08:25:00 08:25:[address] [facility] 2019-12-26 2019-12-26 [facility] [id number] Common 08:24:00 08:24:[address] [facility] 2019-12-19 2019-12-19 [facility] [id number] Common 11:00:00 11:00:[address] [facility] 2019-10-25 2019-10-25 [facility] [id number] Common 10:30:00 10:30:00 t Specialty/U Sp devin Specialty rology - [facility] /[facility] 2019-10-18 2019-10-18 [facility] [id number] Common 11:00:00 11:00:[address] [facility] 2019-07-29 2019-07-29 [facility] [id number] Common 11:00:00 11:00:[address] [facility] 2019-07-27 2019-07-27 [facility] [id number] Common 09:14:00 09:14:[address] [facility] [address] [facility] 2019-07-26 2019-07-26 [facility] [id number] Common 10:30:00 10:30:00 t Specialty/U Sp devin Specialty rology - /[facility] Clinic [facility] 2019-07-20 2019-07-20 [facility] [id number] Common 16:41:00 16:41:[address] [facility] 2019-07-18 2019-07-18 [facility] [id number] Common 14:00:00 14:00:[address] [facility] 2013-04-11 2013-04-15 Inpatient nullFlavo [facility] [id number] Memoria 03:10:00 19:00:[address] Results Test Description Test Time Test Comments Results Result Comments Source COMPREHENSIVE METABOLIC PANEL(CMP) 2022-04-08 00:00:00 Test Item Value Reference Range Interpretation Comme nts GLUCOSE (test code = 165 mg/dL See_Comment H [Autom ated message] The 0415-7) system which ge nerated this result transmit john reference range: 65-139 m g/dL. The reference range was not used to interpret th is result as normal/abnormal . UREA NITROGEN (BUN) (test 30 mg/dL See_Comment H [ Automated message] The code = 3094-0) system which generated this result transmit john reference range: 7-25 mg/ dL. The reference range was not used to interpret th is result as normal/abnormal . CREATININE (test code = 1.19 mg/dL See_Comment N [Au tomated message] The ) system which Geosophic nerated this result transmit john reference range: 0.70-1.2 2 mg/dL. The reference range was not used to interpret th is result as normal/abnormal . BUN/CREATININE RATIO 25 (calc) See_Comment H [Autom ated message] The (test code = 3097-3) system which generated this result transmit john reference range: 6-22 (ca lc). The reference range was not used to interpret th is result as normal/abnormal . SODIUM (test code = 139 mmol/L See_Comment N [Automa john message] The 29507-14) system which Geosophic nerated this result transmit john reference range: 135-146 mmol/L. The reference range was not used to interpret th is result as normal/abnormal . POTASSIUM (test code = 3.9 mmol/L See_Comment N [Aut omated message] The 2822-09) system which [employer] nerated this result transmit john reference range: 3.5-5.3 mmol/L. The reference range was not used to interpret th is result as normal/abnormal . CHLORIDE (test code = 99 mmol/L See_Comment N [Auto mated message] The ) system which [employer] nerated this result transmit john reference range: 98-110 m mol/L. The reference range was not used to interpret th is result as normal/abnormal . CARBON DIOXIDE (test code 31 mmol/L See_Comment N [ Automated message] The = 2028-03) system which [employer] nerated this result transmit john reference range: 20-32 mm ol/L. The reference range was not used to interpret th is result as normal/abnormal . CALCIUM (test code = 9.9 mg/dL See_Comment N [Autom ated message] The 50585-9) system which Ge[employer] nerated this result transmit john reference range: 8.6-10.3 mg/dL. The reference range was not used to interpret th is result as normal/abnormal . PROTEIN, TOTAL (test code 7.5 g/dL See_Comment N [ Automated message] The = 2885-2) system which ge nerated this result transmit john reference range: 6.1-8.1 g/dL. The reference range was not used to interpret th is result as normal/abnormal . ALBUMIN (test code = 4.6 g/dL See_Comment N [Autom ated message] The 1751-7) system which ge nerated this result transmit john reference range: 3.6-5.1 g/dL. The reference range was not used to interpret th is result as normal/abnormal . GLOBULIN (test code = 2.9 g/dL (calc) See_Comment N [A utomated message] The 31015-5) system which ge nerated this result transmit john reference range: 1.9-3.7 g/dL (calc). The reference r anil was not used to interpr et this result as normal/abnor mal. ALBUMIN/GLOBULIN RATIO 1.6 (calc) See_Comment N [Aut omated message] The (test code = 1759-0) system which generated this result transmit jonh reference range: 1.0-2.5 (calc). The reference range was not used to interpret th is result as normal/abnormal . BILIRUBIN, TOTAL (test 0.5 mg/dL See_Comment N [Aut omated message] The code = 1975-2) system which generated this result transmit john reference range: 0.2-1.2 mg/dL. The reference range was not used to interpret th is result as normal/abnormal . ALKALINE PHOSPHATASE 51 U/L See_Comment N [Autom ated message] The (test code = 6768-6) system which generated this result transmit john reference range: 35-144 U /L. The reference range was not used to interpret th is result as normal/abnormal . AST (test code = 1920-8) 17 U/L See_Comment N [A utomated message] The system which ge nerated this result transmit john reference range: 10-35 U/ L. The reference range was not used to interpret th is result as normal/abnormal . ALT (test code = 1742-6) 21 U/L See_Comment N [A utomated message] The system which ge nerated this result transmit jhon reference range: 9-46 U/L . The reference range was not u sed to interpret this result as normal/abnormal . LIPID PANEL WITH REFLEX TO DIRECT [id number] 00:00:00 Test Item Value Reference Range Interpretation Comments CHOLESTEROL, TOTAL 181 mg/dL See_Comment N [Automat ed (test code = 2093-3) message ] The system which generated this result transmitted reference range : <200 mg/dL. The reference range was not used to interpret this result as normal/abnormal . HDL CHOLESTEROL (test 48 mg/dL See_Comment N [Auto mated code = 2085-9) message] The system which generated this result transmitted reference range : > OR = 40 mg/dL. The reference range was not used to interpret this result as normal/abnormal . TRIGLYCERIDES (test 265 mg/dL See_Comment H [Automa john code = 2571-8) message] The system which generated this result transmitted reference range : <150 mg/dL. The reference range was not used to interpret this result as normal/abnormal . LDL-CHOLESTEROL (test 95 mg/dL N code = 43832-9) (calc) CHOL/HDLC RATIO (test 3.8 (calc) See_Comment N [Auto mated code = 9830-1) message] The system which generated this result transmitted reference range : <5.0 (calc). Th e reference range was not used to interpret this result as normal/abnormal . MICROALBUMIN, RANDOM URINE (W/CREATININE)2022-04-08 00:00:00 Test Item Value Reference Range Interpretation Comments CREATININE, 129 mg/dL See_Comment N [Automated mes terry] RANDOM URINE The system whic h (test code = generated this result 2161-8) transmitted ref erence range: 20-320 m g/dL. The reference r anil was not used to interpret this result as normal/abnor mal. ALBUMIN, URINE 0.6 mg/dL See Note: mg/dL N (test code = 99451-8) ALBUMIN/CREATININ 5 mcg/mg creat See_Comment N [Automa john message] E RATIO, RANDOM The system w hich URINE (test code generated t his result = 9318-7) transmitted ref erence range: <30 mcg/ mg creat. The refe rence range was not u sed to interpret this result as normal/abnor mal. HEMOGLOBIN A1C WITH [id number] 00:00:00 Test Item Value Reference Range Interpretation Comments HEMOGLOBIN A1c (test 7.3 % of total See_Comment H [Aut omated message] code = 4548-4) Hgb The system [facility] generated this result transmit john reference range : <5.7 % of total Hgb. The reference r anil was not used to interpret this result as normal/abnormal . MEAN PLASMA GLUCOSE 183 mg/dL (test code = (calc) 04712-0) [id number] 00:00:00 Test Item Value Reference Range Interpretation Comments TSH (test code = 5.23 mIU/L See_Comment H [Automated message] The 3016-3) system which ge nerated this result tra nsmitted reference range : 0.40-4.50 mIU/L . The reference range was not used to interpr et this result as normal/abnormal . COMPREHENSIVE METABOLIC PANEL(CMP)2021-12-23 00:00:00 Test Item Value Reference Range Interpretation Comments GLUCOSE (test code = 155 mg/dL See_Comment H [Autom ated message] 2345-7) The system [facility] generated this result transmit john reference range : 65-139 mg/dL. T he reference range was not used to interpret this result as normal/abnormal . UREA NITROGEN (BUN) 19 mg/dL See_Comment N [Automa john message] (test code = 3094-0) The [facility] [employer] which generated this result transmit john reference range : 7-25 mg/dL. The reference range was not used to interpret this result as normal/abnormal . CREATININE (test 1.12 mg/dL See_Comment H [Automated message] code = 2160-0) The system [facility] generated this result transmit john reference range : 0.70-1.11 mg/dL . The reference range was not used to interpret this result as normal/abnormal . eGFR NON-AFR. 59 See_Comment L [Automated me ssage] ICELANDIC (test code mL/min/1.73m2 The s tem which = 58598-4) generated this result transmit john reference range : > OR = 60 mL/min/1.73m2. The reference range was not used to interpret this result as normal/abnormal . eGFR 69 See_Comment N [Automated mes terry] ICELANDIC (test code mL/min/1.73m2 The s tem which = 88720-2) generated this result transmit john reference range : > OR = 60 mL/min/1.73m2. The reference range was not used to interpret this result as normal/abnormal . BUN/CREATININE RATIO 17 (calc) See_Comment N [Autom ated message] (test code = 3097-3) The [facility] tem which generated this result transmit john reference range : 6-22 (calc). Th e reference range was not used to interpret this result as normal/abnormal . SODIUM (test code = 136 mmol/L See_Comment N [Automa john message] 2951-2) The system [employer] generated this result transmit john reference range : 135-146 mmol/L. The reference range was not used to interpret this result as normal/abnormal . POTASSIUM (test code 4.7 mmol/L See_Comment N [Autom ated message] = 2823-3) The system [employer] generated this result transmit john reference range : 3.5-5.3 mmol/L. The reference range was not used to interpret this result as normal/abnormal . CHLORIDE (test code 101 mmol/L See_Comment N [Automa john message] = 5-0) The system [employer] generated this result transmit john reference range : 98-110 mmol/L. The reference range was not used to interpret this result as normal/abnormal . CARBON DIOXIDE (test 29 mmol/L See_Comment N [Autom ated message] code = 2027-9) The system [employer] generated this result transmit john reference range : 20-32 mmol/L. T he reference range was not used to interpret this result as normal/abnormal . CALCIUM (test code = 8.9 mg/dL See_Comment N [Autom ated message] 91594-3) The system [employer] generated this result transmit john reference range : 8.6-10.3 mg/dL. The reference range was not used to interpret this result as normal/abnormal . PROTEIN, TOTAL (test 6.8 g/dL See_Comment N [Autom ated message] code = 2885-2) The system [employer] generated this result transmit john reference range : 6.1-8.1 g/dL. T he reference range was not used to interpret this result as normal/abnormal . ALBUMIN (test code = 4.0 g/dL See_Comment N [Autom ated message] 175-7) The system [employer] generated this result transmit john reference range : 3.6-5.1 g/dL. T he reference range was not used to interpret this result as normal/abnormal . GLOBULIN (test code 2.8 g/dL See_Comment N [Automa john message] = 88638-1) (calc) The system [employer] generated this result transmit john reference range : 1.9-3.7 g/dL (c alc). The reference r anil was not used to interpret this result as normal/abnormal . ALBUMIN/GLOBULIN 1.4 (calc) See_Comment N [Automated message] RATIO (test code = The syste m which 175-0) generated this result transmit john reference range : 1.0-2.5 (calc). The reference range was not used to interpret this result as normal/abnormal . BILIRUBIN, TOTAL 0.6 mg/dL See_Comment N [Automated message] (test code = 1974-08) The sys tem which generated this result transmit john reference range : 0.2-1.2 mg/dL. The reference range was not used to interpret this result as normal/abnormal . ALKALINE PHOSPHATASE 46 U/L See_Comment N [Autom ated message] (test code = 6768-6) The sys tem which generated this result transmit john reference range : 35-144 U/L. The reference range was not used to interpret this result as normal/abnormal . AST (test code = 13 U/L See_Comment N [Automated message] 1919-) The system [employer] generated this result transmit john reference range : 10-35 U/L. The reference range was not used to interpret this result as normal/abnormal . ALT (test code = 15 U/L See_Comment N [Automated message] 791-6) The system [employer] generated this result transmit john reference range : 9-46 U/L. The reference range was not used to interpret this result as normal/abnormal . LIPID PANEL WITH REFLEX TO DIRECT [id number] 00:00:00 Test Item Value Reference Range Interpretation Comments CHOLESTEROL, TOTAL 154 mg/dL See_Comment N [Automat ed (test code = 2093-3) message ] The system which generated this result transmitted reference range : <200 mg/dL. The reference range was not used to interpret this result as normal/abnormal . HDL CHOLESTEROL (test 46 mg/dL See_Comment N [Auto mated code = 2085-9) message] The system which generated this result transmitted reference range : > OR = 40 mg/dL. The reference range was not used to interpret this result as normal/abnormal . TRIGLYCERIDES (test 209 mg/dL See_Comment H [Automa john code = 2571-8) message] The system which generated this result transmitted reference range : <150 mg/dL. The reference range was not used to interpret this result as normal/abnormal . LDL-CHOLESTEROL (test 78 mg/dL N code = 43386-6) (calc) CHOL/HDLC RATIO (test 3.3 (calc) See_Comment N [Auto mated code = 9830-1) message] The system which generated this result transmitted reference range : <5.0 (calc). Th e reference range was not used to interpret this result as normal/abnormal . MICROALBUMIN, RANDOM URINE (W/CREATININE)2021-12-23 00:00:00 Test Item Value Reference Range Interpretation Comments CREATININE, 95 mg/dL See_Comment N [Automated mes terry] RANDOM URINE The system [facility] (test code = generated this result 2160-) transmitted ref erence range: 20-320 m g/dL. The reference r anil was not used to interpret this result as normal/abnor mal. ALBUMIN, URINE 0.4 mg/dL See Note: mg/dL N (test code = 27656-8) ALBUMIN/CREATININ 4 mcg/mg creat See_Comment N [Automa john message] E RATIO, RANDOM The system w hich URINE (test code generated t his result = 9318-7) transmitted ref erence range: <30 mcg/ mg creat. The refe rence range was not u sed to interpret this result as normal/abnor mal. HEMOGLOBIN A1C WITH [id number] 00:00:00 Test Item Value Reference Range Interpretation Comments HEMOGLOBIN A1c (test 6.7 % of total See_Comment H [Aut omated message] code = 4548-4) Hgb The system [facility] generated this result transmit john reference range : <5.7 % of total Hgb. The reference r anil was not used to interpret this result as normal/abnormal . MEAN PLASMA GLUCOSE 161 mg/dL (test code = (calc) 55998-9) [id number] 00:00:00 Test Item Value Reference Range Interpretation Comments TSH (test code = 5.32 mIU/L See_Comment H [Automated message] The 3016-3) system which ge nerated this result tra nsmitted reference range : 0.40-4.50 mIU/L . The reference range was not used to interpr et this result as normal/abnormal . TSH W/REFLEX TO [id number] 00:00:00 Test Item Value Reference Range Interpretation Comments TSH W/REFLEX TO FT4 (test code = 4.96 0.40-4.50 3016-3) COMPREHENSIVE METABOLIC PANEL(CMP)2021-09-20 00:00:00 Test Item Value Reference Range Interpretation Comments GLUCOSE (test code = 118 65-139 2345-7) UREA NITROGEN (BUN) 24 7-25 (test code = 3094-0) CREATININE (test code = 1.31 0.70-1.11 2160-0) eGFR NON-AFR. ICELANDIC 49 See_Comment [Aut omated message] The (test code = 27916-0) system which generated this result tra nsmitted reference range : > OR = 60. The referen ce range was not used to interpret this result as normal/abnormal . eGFR 57 See_Comment [Auto mated message] The (test code = 09827-1) system which generated this result tra nsmitted reference range : > OR = 60. The referen ce range was not used to interpret this result as normal/abnormal . BUN/CREATININE RATIO 18 6-22 (test code = 3097-3) SODIUM (test code = 139 808-020 2499-2) POTASSIUM (test code = 4.3 3.5-5.3 2823-3) CHLORIDE (test code = 99 98-110 2075-0) CARBON DIOXIDE (test 30 20-32 code = 2027-9) CALCIUM (test code = 9.4 8.6-10.3 35883-2) PROTEIN, TOTAL (test 7.2 6.1-8.1 code = 2885-2) ALBUMIN (test code = 4.2 3.6-5.1 1751-7) GLOBULIN (test code = 3.0 1.9-3.7 52410-0) ALBUMIN/GLOBULIN RATIO 1.4 1.0-2.5 (test code = 1759-0) BILIRUBIN, TOTAL (test 0.6 0.2-1.2 code = 1975-2) ALKALINE PHOSPHATASE 55 35-144 (test code = 6768-6) AST (test code = 1920-8) 14 10-35 ALT (test code = 1742-6) 16 9-46 LIPID PANEL WITH REFLEX TO DIRECT [id number] 00:00:00 Test Item Value Reference Range Interpretation Comments CHOLESTEROL, TOTAL (test 155 <200 code = 2093-3) HDL CHOLESTEROL (test 43 See_Comment [Auto mated message] code = 5-9) The system [facility] generated this result transmitted ref erence range: > OR = 4 0. The reference range was not used to interpr et this result as normal/abnormal . TRIGLYCERIDES (test code 272 <150 = 2571-8) LDL-CHOLESTEROL (test 76 code = 50586-6) CHOL/HDLC RATIO (test 3.6 <5.0 code = 9830-1) MICROALBUMIN, RANDOM URINE (W/CREATININE)2021-09-20 00:00:00 Test Item Value Reference Range Interpretation Comments CREATININE, RANDOM URINE (test code = 174 20-320 2161-8) ALBUMIN, URINE (test code = 02150-1) 0.8 See Note: ALBUMIN/CREATININE RATIO, RANDOM URINE 5 <30 (test code = 9318-7) HEMOGLOBIN A1C WITH [id number] 00:00:00 Test Item Value Reference Range Interpretation Comments HEMOGLOBIN A1c (test code = 4548-4) 7.0 <5.7 MEAN PLASMA GLUCOSE (test code = 172 41626-3) [id number] 12:30:00 Test Item Value Reference Range Interpretation Comments Hgb (test code = Hgb) 13.9 14.0-18.0 L [facility]xoxOHLHQVPBIL1833-47-03 12:30:00 Test Item Value Reference Range Interpretation Comments MCV (test code = MCV) 95.6 80.0-94.0 H [facility]YwdqhtiRBNWFPCBKW7910-95-17 12:30:00 Test Item Value Reference Range Interpretation Comments Hct (test code = Hct) 41.4 42.0-54.0 L [facility] AustinJkzlugzBQDGYTIGUP7800-47-00 12:30:00 Test Item Value Reference Range Interpretation Comments WBC (test code = WBC) 12.0 3.7-10.4 H [facility] AustinBooxwymJCXDFAIKDD4285-13-36 12:30:00 Test Item Value Reference Range Interpretation Comments RDW (test code = RDW) 13.2 11.5-14.5 N [facility] AustinHhscdpuGEDEXCILWP4627-48-48 12:30:00 Test Item Value Reference Range Interpretation Comments MCHC (test code = MCHC) 33.5 32.0-36.0 N [facility]IfdzhqeVDTMDUXPG8906-52-54 12:30:00 Test Item Value Reference Range Interpretation Comments AGAP (test code = AGAP) 20.0 10.0-20.0 N [facility] HeightsMzbdbgzITSGRAPXQ1355-07-79 12:30:00 Test Item Value Reference Range Interpretation Comments eGFR (test code = eGFR) 90 [facility] HeightsFnzhkgzAFDXJKLPF7799-23-69 12:30:00 Test Item Value Reference Range Interpretation Comments Calcium Lvl (test code = Calcium Lvl) 8.4 8.5-10.5 L [facility] HeightsPqgrmiaZEBJOHBWZ7415-20-07 12:30:00 Test Item Value Reference Range Interpretation Comments Chloride Lvl (test code = Chloride Lvl) 106 95-109 N [facility] HeightsXlgeegwDHVCCPCEN8008-93-64 12:30:00 Test Item Value Reference Range Interpretation Comments CO2 (test code = CO2) 23 24-32 L [facility] HeightsGlclmkoPMTQMZPMT1221-17-28 12:30:00 Test Item Value Reference Range Interpretation Comments Sodium Lvl (test code = Sodium Lvl) 144 135-145 N [facility] HeightsZeozbylCBMAROZJX4556-86-04 12:30:00 Test Item Value Reference Range Interpretation Comments Potassium Lvl (test code = Potassium 5.0 3.5-5.1 N Lvl) [facility] HeightsHfrvtigFNKAQEMNH7095-76-65 12:30:00 Test Item Value Reference Range Interpretation Comments Glucose Lvl (test code = Glucose Lvl) 94 70-99 N [facility] HeightsCfftgqgBHNNUQACC9875-52-34 12:30:00 Test Item Value Reference Range Interpretation Comments BUN (test code = BUN) 13 7-22 N [facility] HeightsHphbcqxSJSNZLXQH6411-51-59 12:30:00 Test Item Value Reference Range Interpretation Comments Creatinine Lvl (test code = Creatinine 0.7 0.5-1.4 N Lvl) [facility]YmqkjxnTFUZYEATPE6919-52-28 12:30:00 Test Item Value Reference Range Interpretation Comments Monocytes # (test code 1.0 See_Comment H [Aut omated message] The = Monocytes #) system which generated this result tra nsmitted reference range : <=0.8. The reference r anil was not used to int erpret this result as normal/abnormal . [facility] AustinNtqrxtcBTXGRHOBCI2709-20-48 12:30:00 Test Item Value Reference Range Interpretation Comments Lymphocytes # (test code = Lymphocytes 4.7 1.0-5.5 N #) [facility] AustinOdeloipYJMPGLCONK9862-75-70 12:30:00 Test Item Value Reference Range Interpretation Comments Basophils # (test code 0.1 See_Comment N [Aut omated message] The = Basophils #) system which generated this result tra nsmitted reference range : <=0.2. The reference r anil was not used to int erpret this result as normal/abnormal . [facility] AustinNzurukxSWQCQBJAVQ4725-45-63 12:30:00 Test Item Value Reference Range Interpretation Comments Eosinophils # (test code 0.3 See_Comment N [A utomated message] The = Eosinophils #) system whic h generated this result tra nsmitted reference range : <=0.5. The reference r anil was not used to int erpret this result as normal/abnormal . [facility] AustinOewhvncUELZVWTGXF7117-57-49 12:30:00 Test Item Value Reference Range Interpretation Comments Basophils (test code = 0.6 See_Comment N [Aut omated message] The Basophils) system which ge nerated this result tra nsmitted reference range : <=1.0. The reference r anil was not used to int erpret this result as normal/abnormal . [facility] AustinFxwzbtpKOSNTOFXBS1242-49-23 12:30:00 Test Item Value Reference Range Interpretation Comments Eosinophils (test code = 2.5 See_Comment N [A utomated message] The Eosinophils) system which ge nerated this result tra nsmitted reference range : <=4.0. The reference r anil was not used to int erpret this result as normal/abnormal . [facility] AustinLgedctyPNXRMGJKFR9412-53-75 12:30:00 Test Item Value Reference Range Interpretation Comments Lymphocytes (test code = Lymphocytes) 38.7 20.0-40.0 N [facility] AustinFsugzbtSNIIVMJDWD1074-78-73 12:30:00 Test Item Value Reference Range Interpretation Comments Segs (test code = Segs) 49.8 45.0-75.0 N [facility] AustinJjbmgncZJLIEVHIAV0586-54-88 12:30:00 Test Item Value Reference Range Interpretation Comments Segs-Bands # (test code = Segs-Bands #) 6.0 1.5-8.1 N [facility] AustinAqyyvpuGZARKKBLRQ3562-19-25 12:30:00 Test Item Value Reference Range Interpretation Comments Monocytes (test code = Monocytes) 8.4 2.0-12.0 N [facility] AustinVhuktzdIELQRVKKBQ8881-63-37 12:30:00 Test Item Value Reference Range Interpretation Comments MCH (test code = MCH) 32.0 pg 27.0-31.0 H [facility] AustinKbqbotgBKRNPVLEGA9122-96-81 12:30:00 Test Item Value Reference Range Interpretation Comments MPV (test code = MPV) 7.7 7.4-10.4 N [facility] AustinDpbrpqqKQYWOIZYCN1517-33-31 12:30:00 Test Item Value Reference Range Interpretation Comments Platelet (test code = Platelet) 243 133-450 N [facility] AustinUqucproTVHQYOUXOC7462-22-15 12:30:00 Test Item Value Reference Range Interpretation Comments RBC (test code = RBC) 4.33 4.70-6.10 L [facility] HeightsBotljxwJYQWOIJJU2885-18-66 10:11:00 Test Item Value Reference Range Interpretation Comments eGFR (test code = eGFR) 58 [facility] HeightsGvkfrzkGKBDWPVZY3323-73-20 10:11:00 Test Item Value Reference Range Interpretation Comments Glucose Lvl (test code = Glucose Lvl) 96 70-99 N [facility] HeightsXagzvexOVEJPBEVN5099-50-60 10:11:00 Test Item Value Reference Range Interpretation Comments BUN (test code = BUN) 16 7-22 N [facility] HeightsTsntkncOZNNJGDNN7260-88-80 10:11:00 Test Item Value Reference Range Interpretation Comments Creatinine Lvl (test code = Creatinine 1.2 0.5-1.4 N Lvl) [facility] HeightsYkoetjkAEAGEKLAE0188-80-80 10:11:00 Test Item Value Reference Range Interpretation Comments Calcium Lvl (test code = Calcium Lvl) 8.5 8.5-10.5 N [facility] HeightsBnceagtYAMXPSTMW7731-67-11 10:11:00 Test Item Value Reference Range Interpretation Comments AGAP (test code = AGAP) 15.9 10.0-20.0 N [facility] HeightsJokevleKSAZFZOLT2356-06-80 10:11:00 Test Item Value Reference Range Interpretation Comments Chloride Lvl (test code = Chloride Lvl) 106 95-109 N [facility] HeightsKzjunqxZPCAAYKHT6835-05-48 10:11:00 Test Item Value Reference Range Interpretation Comments CO2 (test code = CO2) 26 24-32 N [facility] HeightsQtdlbsfDGSTVECGF7667-42-42 10:11:00 Test Item Value Reference Range Interpretation Comments Sodium Lvl (test code = Sodium Lvl) 143 135-145 N [facility] HeightsVercnziLKAJTQGRE1793-33-72 10:11:00 Test Item Value Reference Range Interpretation Comments Potassium Lvl (test code = Potassium 4.9 3.5-5.1 N Lvl) [facility] AustinKjikzhbLOXDEIHSGV2210-30-25 10:11:00 Test Item Value Reference Range Interpretation Comments MCV (test code = MCV) 96.2 80.0-94.0 H [facility] AustinYzidcsaUKUJJTVKOL5844-76-39 10:11:00 Test Item Value Reference Range Interpretation Comments MPV (test code = MPV) 7.3 7.4-10.4 L [facility] AustinJuxapwdNCGZEODGZS0515-01-57 10:11:00 Test Item Value Reference Range Interpretation Comments Platelet (test code = Platelet) 281 133-450 N [facility] AustinUtdonjuJNSWZXZEBT8717-61-15 10:11:00 Test Item Value Reference Range Interpretation Comments RDW (test code = RDW) 13.7 11.5-14.5 N [facility] AustinFsszskiEMCSCKPBNW2109-00-60 10:11:00 Test Item Value Reference Range Interpretation Comments MCHC (test code = MCHC) 32.9 32.0-36.0 N [facility]XvvsbyrVCGGGTNWGE7502-98-85 10:11:00 Test Item Value Reference Range Interpretation Comments MCH (test code = MCH) 31.6 pg 27.0-31.0 H [facility] AustinGvhkdytZSZNIVQSOL0808-53-81 10:11:00 Test Item Value Reference Range Interpretation Comments RBC (test code = RBC) 4.24 4.70-6.10 L [facility] AustinVqxtrztTVYYLNDHVY4305-82-99 10:11:00 Test Item Value Reference Range Interpretation Comments WBC (test code = WBC) 8.0 3.7-10.4 N [facility] AustinZxoknynWFEYFCOWIV1014-21-96 10:11:00 Test Item Value Reference Range Interpretation Comments Hct (test code = Hct) 40.8 42.0-54.0 L [facility] AustinSpixixoVFPQSWGORK8085-73-43 10:11:00 Test Item Value Reference Range Interpretation Comments Hgb (test code = Hgb) 13.4 14.0-18.0 L [facility] AustinKmywkprYPIREMZNOF1552-08-26 10:11:00 Test Item Value Reference Range Interpretation Comments Eosinophils (test code = 2.7 See_Comment N [A utomated message] The Eosinophils) system which ge nerated this result tra nsmitted reference range : <=4.0. The reference r anil was not used to int erpret this result as normal/abnormal . [facility] AustinEnhtzpxJVHAXDFJUK6521-08-54 10:11:00 Test Item Value Reference Range Interpretation Comments Monocytes (test code = Monocytes) 10.9 2.0-12.0 N [facility] AustinLwgfjdwSZXLOYLDRK4793-37-36 10:11:00 Test Item Value Reference Range Interpretation Comments Eosinophils # (test code 0.2 See_Comment N [A utomated message] The = Eosinophils #) system ic h generated this result tra nsmitted reference range : <=0.5. The reference r anil was not used to int erpret this result as normal/abnormal . [facility] AustinLyzhhkbZNJGMQBFII0626-20-84 10:11:00 Test Item Value Reference Range Interpretation Comments Monocytes # (test code 0.9 See_Comment H [Aut omated message] The = Monocytes #) system which generated this result tra nsmitted reference range : <=0.8. The reference r anil was not used to int erpret this result as normal/abnormal . [facility] AustinPuetohqHQYITCWBAI7373-13-40 10:11:00 Test Item Value Reference Range Interpretation Comments Lymphocytes # (test code = Lymphocytes 2.7 1.0-5.5 N #) [facility] AustinCirgdmoDRRGGWPYCG8966-15-71 10:11:00 Test Item Value Reference Range Interpretation Comments Segs-Bands # (test code = Segs-Bands #) 4.2 1.5-8.1 N [facility] AustinKwvjdwuBFFGGNIQPV5005-19-31 10:11:00 Test Item Value Reference Range Interpretation Comments Basophils (test code = 0.3 See_Comment N [Aut omated message] The Basophils) system which ge nerated this result tra nsmitted reference range : <=1.0. The reference r anil was not used to int erpret this result as normal/abnormal . [facility] AustinWhsgbrlKUFNDDUZID2861-78-66 10:11:00 Test Item Value Reference Range Interpretation Comments Segs (test code = Segs) 52.8 45.0-75.0 N [facility] AustinRvgzosePWHNRXCNRK0481-04-99 10:11:00 Test Item Value Reference Range Interpretation Comments Lymphocytes (test code = Lymphocytes) 33.3 20.0-40.0 N [facility]XcimwkyYQRBFCIXS7854-62-48 16:32:00 Test Item Value Reference Range Interpretation Comments eGFR (test code = eGFR) 82 [facility] HeightsUcdbiazMXWSZISBU9085-53-56 16:32:00 Test Item Value Reference Range Interpretation Comments Potassium Lvl (test code = Potassium 4.4 3.5-5.1 N Lvl) [facility] HeightsUbqyzkiIHYVIMFHN0483-79-16 16:32:00 Test Item Value Reference Range Interpretation Comments Chloride Lvl (test code = Chloride Lvl) 105 95-109 N [facility] HeightsAggdzfcFAEQABINW4014-03-71 16:32:00 Test Item Value Reference Range Interpretation Comments CO2 (test code = CO2) 26 24-32 N [facility] HeightsHjbvresDNCPQFIUR8472-14-55 16:32:00 Test Item Value Reference Range Interpretation Comments BUN (test code = BUN) 13 7-22 N [facility] HeightsOplrxwcKXXCCVNON4231-07-91 16:32:00 Test Item Value Reference Range Interpretation Comments Calcium Lvl (test code = Calcium Lvl) 8.9 8.5-10.5 N [facility] HeightsJqnffkdSFBFFHHJD0722-86-71 16:32:00 Test Item Value Reference Range Interpretation Comments Creatinine Lvl (test code = Creatinine 0.9 0.5-1.4 N Lvl) [facility] HeightsYtlxiauWCINCBMSI9837-93-02 16:32:00 Test Item Value Reference Range Interpretation Comments Sodium Lvl (test code = Sodium Lvl) 143 135-145 N [facility] HeightsYhojqjnZXTRHRVUG6170-25-10 16:32:00 Test Item Value Reference Range Interpretation Comments Glucose Lvl (test code = Glucose Lvl) 104 70-99 H [facility] HeightsOrxxxweABRKIZSPI2111-46-36 16:32:00 Test Item Value Reference Range Interpretation Comments AGAP (test code = AGAP) 16.4 10.0-20.0 N [facility] AustinKwfxtctIFCKGWVAJN1024-58-34 16:32:00 Test Item Value Reference Range Interpretation Comments MPV (test code = MPV) 8.5 7.4-10.4 N [facility] AustinGmbbkasNHDFUHOBHK0692-17-11 16:32:00 Test Item Value Reference Range Interpretation Comments Platelet (test code = Platelet) 175 133-450 N [facility] AustinEfuxpslWXVYMJSTWT0964-99-94 16:32:00 Test Item Value Reference Range Interpretation Comments MCHC (test code = MCHC) 33.9 32.0-36.0 N [facility] AustinCdfhlaaFTANGYGRGQ7635-34-52 16:32:00 Test Item Value Reference Range Interpretation Comments Hgb (test code = Hgb) 13.5 14.0-18.0 L [facility] AustinMhofnlcQAMHUMTPGV6950-94-41 16:32:00 Test Item Value Reference Range Interpretation Comments MCH (test code = MCH) 32.3 pg 27.0-31.0 H [facility] AustinEjkpgqgXRUCBPZLNP4243-34-98 16:32:00 Test Item Value Reference Range Interpretation Comments RDW (test code = RDW) 13.6 11.5-14.5 N [facility] AustinTiiqwbmLSILZDMIMK9820-70-07 16:32:00 Test Item Value Reference Range Interpretation Comments Hct (test code = Hct) 39.9 42.0-54.0 L [facility] AustinKfzyzftQFOUNRYCCS3890-15-26 16:32:00 Test Item Value Reference Range Interpretation Comments MCV (test code = MCV) 95.3 80.0-94.0 H [facility] AustinXksxvdpHHCFWVLXGN8973-44-03 16:32:00 Test Item Value Reference Range Interpretation Comments RBC (test code = RBC) 4.19 4.70-6.10 L [facility] AustinUrssikeXORWXBZAOQ3915-86-71 16:32:00 Test Item Value Reference Range Interpretation Comments WBC (test code = WBC) 12.7 3.7-10.4 H [facility] AustinDhknuncCLKIAPYBSO4975-59-62 16:32:00 Test Item Value Reference Range Interpretation Comments Lymphocytes (test code = Lymphocytes) 15.0 20.0-40.0 L [facility] AustinYplkcmvJPBGEBDXWF8095-36-09 16:32:00 Test Item Value Reference Range Interpretation Comments Monocytes (test code = Monocytes) 4.0 2.0-12.0 N [facility] AustinLzuviatOKDSCHVZOP2963-46-53 16:32:00 Test Item Value Reference Range Interpretation Comments Bands (test code = 0.0 See_Comment N [Automat ed message] The Bands) system which ge nerated this result transmit john reference range : <=11.0. The reference r anil was not used to interpr et this result as shanthi l/abnormal. [facility] AustinDqicqkkFWQISGWMID9597-35-42 16:32:00 Test Item Value Reference Range Interpretation Comments Segs (test code = Segs) 80.0 45.0-75.0 H [facility] AustinTybcwmlZMHWPSJNYH9345-49-29 16:32:00 Test Item Value Reference Range Interpretation Comments Eosinophils # (test code 0.1 See_Comment N [A utomated message] The = Eosinophils #) system whic h generated this result tra nsmitted reference range : <=0.5. The reference r anil was not used to int erpret this result as normal/abnormal . [facility] AustinBhawyxfDFDHGATUJK9698-34-40 16:32:00 Test Item Value Reference Range Interpretation Comments Atypical Lymphs (test code = Atypical 0.0 N Lymphs) [facility] AustinGdfdervRGNJPLDFHT4678-89-51 16:32:00 Test Item Value Reference Range Interpretation Comments Eosinophils (test code = 1.0 See_Comment N [A utomated message] The Eosinophils) system which ge nerated this result tra nsmitted reference range : <=4.0. The reference r anil was not used to int erpret this result as normal/abnormal . [facility] AustinYwntjliMSJLKZQRRG2494-94-74 16:32:00 Test Item Value Reference Range Interpretation Comments Plt Morph (test code = Normal (04/13/2013 N Plt Morph) 11:32:00) [facility] AustinMnnorogJEAKLYTSSS4116-46-71 16:32:00 Test Item Value Reference Range Interpretation Comments Anisocyte (test code = 1+ *ABN*(04/13/2013 A Anisocyte) 11:32:00) [facility] AustinYfnryndLPVSYVVPAI2961-77-59 16:32:00 Test Item Value Reference Range Interpretation Comments Monocytes # (test code 0.5 See_Comment N [Aut omated message] The = Monocytes #) system which generated this result tra nsmitted reference range : <=0.8. The reference r anil was not used to int erpret this result as normal/abnormal . [facility] AustinMfsknsePVNWAURQJF4532-22-17 16:32:00 Test Item Value Reference Range Interpretation Comments Lymphocytes # (test code = Lymphocytes 1.9 1.0-5.5 N #) [facility] AustinZlzqghoSHRDGKAHUM0769-52-06 16:32:00 Test Item Value Reference Range Interpretation Comments Segs-Bands # (test code = Segs-Bands #) 10.2 1.5-8.1 H [facility] HeightsXugygceLWDZVITUU5621-16-12 06:18:00 Test Item Value Reference Range Interpretation Comments Phosphorus (test code = Phosphorus) 3.5 2.5-4.5 N [facility] HeightsXdfxonrNOZMTHDUN1457-79-69 06:18:00 Test Item Value Reference Range Interpretation Comments Magnesium Lvl (test code = Magnesium 2.1 1.8-2.4 N Lvl) [facility] AustinDjqhnawZFLBTIWKOF0485-22-96 06:18:00 Test Item Value Reference Range Interpretation Comments Basophils (test code = 0.3 See_Comment N [Aut omated message] The Basophils) system which ge nerated this result tra nsmitted reference range : <=1.0. The reference r anil was not used to int erpret this result as normal/abnormal . [facility] HeightsCuzbdlzSVZRAAXQU8641-12-62 11:38:00 Test Item Value Reference Range Interpretation Comments Magnesium Lvl (test code = Magnesium 1.9 1.8-2.4 N Lvl) [facility] HeightsFfpuarfZIKKKZFKK6204-67-40 11:38:00 Test Item Value Reference Range Interpretation Comments Phosphorus (test code = Phosphorus) 3.0 2.5-4.5 N [facility]IzrthkaIFDTHEARRS1007-59-30 10:50:00 Test Item Value Reference Range Interpretation Comments UA Ketones (test code Negative = UA Ketones) *NA*(04/11/2013 05:50:00) [facility] HospitalUrxndxpVMSEVPYJPW1156-98-92 10:50:00 Test Item Value Reference Range Interpretation Comments UA Blood (test code = Trace *ABN*(04/11/2013 A UA Blood) 05:50:00) [facility]Q9541[facility] 10:50:00 Test Item Value Reference Range Interpretation Comments UA Leuk Est (test code Trace *ABN*(04/11/2013 A = UA Leuk Est) 05:50:00) [facility]HzbwvbxUETYPIGJRJ7904-32-48 10:50:00 Test Item Value Reference Range Interpretation Comments UA Bili (test code = Negative *NA*(04/11/2013 UA Bili) 05:50:00) [facility] CenterMtpnqsnORAKKRKCGW3461-89-85 10:50:00 Test Item Value Reference Range Interpretation Comments UA RBC (test 3-5 /HPF See_Comment A [Automated mes terry] code = UA RBC) *ABN*(04/11/2013 The syste m which 05:50:00) generated this result transmitted ref erence range: <=2. The reference range was not used to int erpret this result as normal/abnormal . [facility] CampusWlnmzksPVHXBJEEAN1585-43-11 10:50:00 Test Item Value Reference Range Interpretation Comments UA Urobilinogen (test code = UA 0.2 0.1-1.0 N Urobilinogen) [facility] CampusBccowmwUIGQPIKKUK4912-29-10 10:50:00 Test Item Value Reference Range Interpretation Comments UA Nitrite (test code Positive A = UA Nitrite) *ABN*(04/11/2013 05:50:00) [facility] CampusAsixptsZPIPBPUFNI1719-86-31 10:50:00 Test Item Value Reference Range Interpretation Comments UA WBC (test code = UA 11-20 /HPF A WBC) *ABN*(04/11/2013 05:50:00) [facility] CampusBleevthKPNNOYAGBR0242-20-72 10:50:00 Test Item Value Reference Range Interpretation Comments UA Sq Epi (test code = None Seen (04/11/2013 N UA Sq Epi) 05:50:00) [facility]YyueudaRWTQRBVUKO3960-23-15 10:50:00 Test Item Value Reference Range Interpretation Comments Micro? (test code = Performed (04/11/2013 N Micro?) 05:50:00) [facility] HospitalDpdjhkbOXXLGEYLKF8229-48-02 10:50:00 Test Item Value Reference Range Interpretation Comments UA Mucus (test code = Few /LPF (04/11/2013 N UA Mucus) 05:50:00) [facility] HospitalRhckwyvAHENOQMIKV5185-13-95 10:50:00 Test Item Value Reference Range Interpretation Comments UA Bacteria (test code = Few /HPF (04/11/2013 N UA Bacteria) 05:50:00) [facility] HospitalNtyciadMMFFVYMXDV2640-42-36 10:50:00 Test Item Value Reference Range Interpretation Comments UA Turbidity (test code Slight Cloudy N = UA Turbidity) (04/11/2013 05:50:00) [facility] HospitalQzxgidjEDPTKDZOJQ2016-11-88 10:50:00 Test Item Value Reference Range Interpretation Comments UA Protein (test code Negative (04/11/2013 N = UA Protein) 05:50:00) [facility] HospitalWzgnhenXDQHZCWDTZ7885-18-44 10:50:00 Test Item Value Reference Range Interpretation Comments UA Spec Grav (test code = UA Spec 1.030 1 Grav) [facility] HospitalPpfdnagSZHCPPZHNV2775-49-28 10:50:00 Test Item Value Reference Range Interpretation Comments UA Color (test code = Yellow *NA*(04/11/2013 UA Color) 05:50:00) [facility] HospitalJarcoqxMYWBWSKOIY5272-88-50 10:50:00 Test Item Value Reference Range Interpretation Comments UA Glucose (test code Negative (04/11/2013 N = UA Glucose) 05:50:00) [facility] HospitalQbknvryUXGZJEUINM6808-84-64 10:50:00 Test Item Value Reference Range Interpretation Comments UA pH (test code = UA pH) 6.0 1 5.0-8.0 N [facility] AustinGokdidmEPFLZLGLBS5678-71-32 05:05:00 Test Item Value Reference Range Interpretation Comments Basophils # (test code 0.1 See_Comment N [Aut omated message] The = Basophils #) system which generated this result tra nsmitted reference range : <=0.2. The reference r anil was not used to int erpret this result as normal/abnormal . [facility] AustinXzemsyuDQUXOEERMO7362-20-59 05:05:00 Test Item Value Reference Range Interpretation Comments Anisocyte (test code = 1+ *ABN*(04/11/2013 A Anisocyte) 00:05:00) [facility]winYhsovxeNKJXGIPSOI2215-29-91 05:05:00 Test Item Value Reference Range Interpretation Comments Plt Morph (test code = Normal (04/11/2013 N Plt Morph) 00:05:00) [facility]
[2022-12-08] MEDS ORDERED: NA CHLORIDE 0.9% 500 ML ONE (20:00)
[2022-12-08] MEDS ORDERED: ACETAMINOPHEN 500 MG TAB ONE (20:00)
[2022-12-08] MEDS ORDERED: CEFTRIAXONE 1000 MG/VIAL ONE (20:00)
[2022-12-08 20:32] LABS: Absolute Lymphocytes (CBC) 1.8 K/uL (0.7-4.9); Hematocrit 39.2 % (39.6-49.0); Lymphocytes % 14.1 % (15.3-44.8); MCV 91.2 fL (80-100); MPV 7.9 fL (7.6-11.3)
[2022-12-08 20:48] LABS: Albumin 3.5 g/dL (3.4-5.0); Bilirubin Total 0.6 mg/dL (0.2-1.0); Protein, Total 6.9 g/dL (6.4-8.2)
--- NOTE | 2022-12-08 20:59 | RAD REPORT ---
EXAM DESCRIPTION: RAD - Chest Single View - 12/08/2022 8:41 pm CLINICAL HISTORY: Chest pain;Cough COMPARISON: Abdomen 1 View (KUB) dated 07/26/2019; CHEST SINGLE VIEW dated 09/16/2010; CHEST SINGLE VIE W dated 09/11/2010; CHEST PA AND LAT 2 VIEW dated 03/20/2009 FINDINGS: Lines: None. Lungs: No evidence of edema or pneumonia. Pleural: No significant pleural effusions or pneumothorax. Cardiac: The heart size is within normal limits. Mediastinum: Within normal limits. Bones: No acute fractures. Other: None IMPRESSION: No acute cardiopulmonary disease.
[2022-12-08 21:02] LABS: Protime INR 0.99
[2022-12-08 21:03] LABS: SARS-CoV-2 Antigen Rapid Res Negative (Negative)
--- NOTE | 2022-12-08 21:13 | RAD REPORT ---
EXAM DESCRIPTION: CT - Head Brain Wo Cont - 12/08/2022 8:57 pm CLINICAL HISTORY: DIZZINESS COMPARISON: No comparisons TECHNIQUE: All CT scans are performed using dose optimization technique as appropriate and may inclu de automated exposure control or mA/KV adjustment according to patient size. FINDINGS: No intracranial hemorrhage, hydrocephalus or extra-axial fluid collection.No areas of brai n edema or evidence of midline shift. Age advanced cerebral atrophy. Mild chronic small vessel ischem ic changes. Cavum septum pellucidum. Question dysgenesis of the corpus callosum. It is extremely thin razia which is chronic. Circumferential thickening in left maxillary sinus. The calvarium is intact. IMPRESSION: No acute intracranial abnormality. Moderate chronic small vessel ischemic changes.
--- NOTE | 2022-12-08 22:26 | EDPHYS ---
Physician Documentation [facility] Name: Jovanny Damon Age: 87 yrs Sex: Male : 1935 Arrival Date: 12/08/2022 Time: 19:24 Bed 16 Private MD: ED Physician Alton Jasso HPI: 12/08 19:43 This 87 yrs old Male presents to ER via EMS with complaints of dizziness, loc.bs3 19:43 87-year-old male history of diabetes presents after an episode of possible syncope per bs3 nurse at bedside and EMS reports that he was talking to his son on the phone when he went unresponsive he was not talking when EMS got there but he has been coming to since then he has no complaints he notes that he lives alone but does not recall what happened and how he got here although he says that he may have called EMS he denies anything else he denies presyncopal chest pain shortness of breath headache nausea or vomiting. Historical: - Allergies: 19:30 No Known Allergies; mb9 - Home Meds: 19:44 gabapentin 300 mg oral Tablet, Extended Release 24 hr [Active]; mb9 Hydrocodone-Acetaminophen 5/500 Oral [Active]; meloxicam 7.5 mg oral tablet daily [Active]; nateglinide 60 mg oral tablet [Active]; metformin 1,000 mg Oral tablet 2 times per day [Active]; tamsulosin 0.4 mg oral capsule once [Active]; hydrochlorothiazide 25 mg Oral tablet [Active]; lovastatin 20 mg Oral tablet daily [Active]; finasteride 5 mg oral tablet daily [Active]; duloxetine 60 mg oral capsule,delayed release (e.c.) 2 times per day [Active]; metoprolol tartrate 50 mg Oral tablet [Active]; - PMHx: 19:30 Diabetes mellitus; mb9 - PSHx: 19:30 Unable to Obtain; mb9 - Immunization history:: Adult Immunizations up to date. - Social history:: Smoking status: Patient denies any tobacco usage or history of. ROS: 19:43 Constitutional: Negative for fever, chills bs3 19:43 All other systems are negative. Exam: 19:43 Constitutional: This is a well developed, well nourished patient who is awake, alert, bs3 and appears slightly tired slow to respond Head/Face: Normocephalic, atraumatic. Eyes: Pupils equal round and reactive to light, extra-ocular motions intact. Lids and lashes normal. ENT: mmm, no posterior phyarngeal erythema Neck: Trachea midline, no thyromegaly, no neck stiffness Chest/axilla: Normal chest wall appearance and motion. Nontender with no deformity. No lesions are appreciated. Cardiovascular: Regular rate and rhythm with a normal S1 and S2. symmetric pulses in upper extremities Respiratory: Lungs have equal breath sounds bilaterally, clear to auscultation, no respiratory distress Abdomen/GI: Soft, non-tender, no rebound or guarding Skin: Warm, dry with normal turgor. Normal color with no rashes, no lesions, and no evidence of cellulitis. MS/ Extremity: Pulses equal, no cyanosis. Neurovascular intact. Full, normal range of motion. 1+ pitting edema bilaterally Neuro: Awake and alert, GCS 15, oriented to person, place, time, and situation. Cranial nerves II-XII grossly intact. Motor strength 5/5 in all extremities. Sensory grossly intact. Able to name objects knows he is in the hospital and knows the year Psych: Awake, alert, with orientation to person, place and time. Behavior, mood, and affect are within normal limits. 20:10 sinus 88, no st elevation or depression qtc 442 bs3 Vital Signs: 19:27 BP 118 / 51; Pulse 90; Resp 18; Temp 99.4(O); Pulse Ox 95% on R/A; Weight 117.93 kg; mb9 Height 5 ft. 11 in. ; 19:44 Temp 101.9(R); mb9 21:26 BP 112 / 60; Pulse 86; Resp 18; Temp 97.9(O); Pulse Ox 100% ; mb9 22:20 BP 101 / 66; Pulse 82; Resp 17; Pulse Ox 98% on R/A; mb9 19:27 Body Mass Index 36.26 (117.93 kg, 180.34 cm) mb9 NIH Stroke Scale Scores: 19:34 NIHSS Score: 0 mb9 MDM: 19:25 Patient medically screened. bs3 19:43 Differential diagnosis: cardiac arrhythmia, CVA, generalized weakness, GI bleed, bs3 sepsis, syncope, TIA, vertigo. Data reviewed: vital signs, nurses notes. ED course: Patient borderline febrile orally I did a rectal temperature and he was found to be febrile will evaluate for sepsis will get EKG we will do serial exams given his altered mental status his age his fever will plan to admit. 22:21 ED course: Patient's results reveal leukocytosis with left shift WBC count 12.6, sodium sp4 133, glucose 205, otherwise normal labs, positive for influenza B, chest x-ray revealed no acute cardiopulmonary process. CT head revealed no acute intracranial abnormality, moderate chronic small vessel ischemic changes. EKG revealed sinus rhythm with a first-degree AV block and sinus arrhythmia. Patient moderate to severe generalized weakness and at this time he warrants admission for IV hydration, fever control, symptomatic management, and also Tamiflu p.o. . 22:24 Consideration of Admission/Observation Patient was admitted/placed on observation. sp4 Escalation of care including admission/observation considered. Management of patient was discussed with the following: Hospitalist: Admission team . 12/08 19:42 Order name: Blood Culture Adult (2) [facility] 12/08 19:42 Order name: CBC with Diff; Complete Time: 22:08 [facility] 12/08 19:42 Order name: CMP; Complete Time: 20:51 [facility] 12/08 19:42 Order name: Lactate w/ 2H reflex if indic.; Complete Time: 20:51 [facility] 12/08 19:42 Order name: Protime (+inr); Complete Time: 22:08 [facility] 12/08 19:42 Order name: Ptt, Activated; Complete Time: 22:08 [facility] 12/08 19:42 Order name: Urinalysis w/ reflexes; Complete Time: 22:55 [facility] 12/08 19:42 Order name: SARS-COV-2 Antigen Rapid; Complete Time: 22:08 [facility] 12/08 19:42 Order name: Influenza Screen (a \T\ B); Complete Time: 22:08 [facility] 12/08 19:42 Order name: Chest Single View XRAY; Complete Time: 22:08 [facility] 12/08 19:42 Order name: CT Head Brain wo Cont; Complete Time: 22:08 [facility] 12/08 19:42 Order name: EKG; Complete Time: 19:43 [facility] 12/08 19:42 Order name: Accucheck; Complete Time: 20:34 bs3 12/08 19:42 Order name: Cardiac monitoring; Complete Time: 19:49 bs3 12/08 19:42 Order name: EKG - Nurse/Tech; Complete Time: 19:49 bs3 12/08 19:42 Order name: IV Saline Lock - Large Bore; Complete Time: 20:03 bs3 12/08 19:42 Order name: Labs collected and sent; Complete Time: 20:03 bs3 12/08 19:42 Order name: O2 Per Protocol; Complete Time: 19:49 bs3 12/08 19:42 Order name: O2 Sat Monitoring; Complete Time: 19:49 bs3 12/08 19:42 Order name: Vital Signs; Complete Time: 19:49 bs3 Administered Medications: 20:03 Drug: Acetaminophen PO 1000 mg Route: PO; mb9 20:20 Drug: NS 0.9% IV 500 ml Route: IV; Rate: bolus; Site: right forearm; mb9 22:54 Follow up: Response: No adverse reaction; IV Status: Completed infusion mb9 20:29 Drug: Rocephin IV 1 grams Route: IV; Rate: 1 bolus; Site: right wrist; as6 22:54 Follow up: Response: No adverse reaction mb9 22:34 Drug: Oseltamivir PO 75 mg Route: PO; mb9 22:53 Follow up: Response: No adverse reaction mb9 22:34 Drug: NS 0.9% IV 1000 ml Route: IV; Rate: 125 ml/hr; Site: right forearm; mb9 Disposition Summary: 12/08/22 22:26 Hospitalization Ordered Hospitalization Status: Inpatient Admission sp4 Provider: Elizabet Orozco4 Location: Telemetry/[facility] (Inpatient) sp4 Condition: Stable sp4 Problem: new sp4 Symptoms: have improved sp4 Bed/Room Type: Standard sp4 Room Assignment: 401(12/08/22 22:29) cg Diagnosis - Influenza due to unidentified influenza virus with other respiratory manifestations sp4 - Influenza B, generalized weakness, dehydration, acute febrile illness sp4 Forms: - Medication Reconciliation Form sp4 - SBAR form sp4 NIH Stroke Scale - NIH Stroke Score Date: 12/08/2022 Time: 19:34 Total Score = 0 10. Dysarthria (speech clarity - read or repeat words) - 0(Normal) 11. Extinction and Inattention (visual/tactile/auditory/spatial/personal) - 0(No abnormality) 1a. Level of Consciousness (LOC) - 0(Alert) 1b. Level of Consciousness (LOC) (Month \T\ Age) - 0(Both) 1c. LOC Commands (Open \T\ Closes Eyes/Singing Messenger) - 0(Both) 2. Best Gaze (Lateral Gaze Paresis) - 0(Normal) 3. Visual Field Loss - 0(No visual loss) 4. Facial Palsy - 0(Normal) 5a. Left Arm: Motor (10-second hold) - 0(No drift) 5b. Right Arm: Motor (10-second hold) - 0(No drift) 6a. Left Leg: Motor (5-second hold - always test supine) - 0(No drift) 6b. Right Leg: Motor (5-second hold - always test supine) - 0(No drift) 7. Limb Ataxia (finger/nose \T\ heel/rivera - test with eyes open) - 0(Absent) 8. Sensory Loss (pinprick arms/legs/face) - 0(Normal) 9. Best Language: Aphasia (description/naming/reading) - 0(No aphasia) Initials: mb9 Signatures: Dispatcher [employer] Luana Guerrero RN RN cg Smith Moore RN RN as6 Nayan Izquierdo MD MD bs3 Ciara Gibson PAJudah PAJudah sb4 Kym Au RN RN mb9 Alton Jasso MD MD sp4 Corrections: (The following items were deleted from the chart) 19:31 19:30 PMHx: Diabetes mellitus; mb9 mb9 19:31 19:30 PMHx: Unable to Obtain; 9 mb9 22:29 22:26 sp4 cg
--- NOTE | 2022-12-08 22:26 | ER ---
[facility] Age: 87 yrs Sex: Male : 1935 Arrival Date: 12/08/2022 Time: 19:24 Bed 16 Private MD: Diagnosis: Influenza due to unidentified influenza virus with other respiratory manifestations;Influenza B, generalized weakness, dehydration, acute febrile illness Presentation: 12/08 19:27 Chief complaint: EMS states: "pt was talking to son on telephone and went unresponsive. mb9 On scene pt was unable to move due to weakness, pt was nauseous, and has back pain that is chronic. Gave 4 mg of Zofran, 800 mL of NS, and BGL was 226. 18 g to right FA.". Coronavirus screen: Vaccine status: Patient reports receiving the 2nd dose of the covid vaccine. Ebola Screen: No symptoms or risks identified at this time. Initial Sepsis Screen: Does the patient meet any 2 criteria? No. Patient's initial sepsis screen is negative. Does the patient have a suspected source of infection? No. Patient's initial sepsis screen is negative. Risk Assessment: Do you want to hurt yourself or someone else? Patient reports no desire to harm self or others. Onset of symptoms was December 08, 2022. 19:27 Method Of Arrival: EMS: [facility] mb9 19:27 Acuity: POLLO 3 mb9 Triage Assessment: 19:31 General: Appears in no apparent distress. Behavior is cooperative. Pain: Complains of mb9 pain in back Pain does not radiate. Quality of pain is described as throbbing, Is chronic. Neuro: Level of Consciousness is awake, obeys commands, Oriented to person, place, time. Cardiovascular: Patient's skin is warm and dry. Respiratory: Airway is patent Respiratory effort is even, unlabored, Respiratory pattern is regular, symmetrical. GI: Abdomen is round non-distended, Bowel sounds present X 4 quads. Abd is soft and non tender X 4 quads. Reports nausea. Derm: Skin is pink, warm \\T\\ dry. Musculoskeletal: Reports weakness in right arm, left arm, right leg and left leg. Historical: - Allergies: 19:30 No Known Allergies; mb9 - Home Meds: 19:44 gabapentin 300 mg oral Tablet, Extended Release 24 hr [Active]; mb9 Hydrocodone-Acetaminophen 5/500 Oral [Active]; meloxicam 7.5 mg oral tablet daily [Active]; nateglinide 60 mg oral tablet [Active]; metformin 1,000 mg Oral tablet 2 times per day [Active]; tamsulosin 0.4 mg oral capsule once [Active]; hydrochlorothiazide 25 mg Oral tablet [Active]; lovastatin 20 mg Oral tablet daily [Active]; finasteride 5 mg oral tablet daily [Active]; duloxetine 60 mg oral capsule,delayed release (e.c.) 2 times per day [Active]; metoprolol tartrate 50 mg Oral tablet [Active]; - PMHx: 19:30 Diabetes mellitus; mb9 - PSHx: 19:30 Unable to Obtain; mb9 - Immunization history:: Adult Immunizations up to date. - Social history:: Smoking status: Patient denies any tobacco usage or history of. Screenin:33 [facility] ED Fall Risk Assessment (Adult) History of falling in the last 3 months, mb9 including since admission No falls in past 3 months (0 pts) Confusion or Disorientation Yes (5 pts) Intoxicated or Sedated No (0 pts) Impaired Gait Yes (1 pt) Mobility Assist Device Used No (0 pt) Altered Elimination No (0 pt) Score/Fall Risk Level 3 or more points = High Risk Oriented to surroundings, Maintained a safe environment, Educated pt \\T\\ family on fall prevention, incl call for assistance when getting out of bed. Abuse screen: Denies threats or abuse. Nutritional screening: No deficits noted. Tuberculosis screening: No symptoms or risk factors identified. Assessment: 20:34 Reassessment: No changes from previously documented assessment. Patient and/or family mb9 updated on plan of care and expected duration. Pain level reassessed. Patient is alert, oriented x 3, equal unlabored respirations, skin warm/dry/pink. 21:00 Reassessment: Spoke to pts Brother, Zack, and gave update on ptTaurus Dixon phone number; [email or web address] [phone]. 22:20 Reassessment: Patient appears in no apparent distress at this time. No changes from mb9 previously documented assessment. Patient and/or family updated on plan of care and expected duration. Pain level reassessed. Patient is alert, oriented x 3, equal unlabored respirations, skin warm/dry/pink. 22:30 Reassessment: Attempted to call report to admitting nurse. mb9 Vital Signs: 19:27 BP 118 / 51; Pulse 90; Resp 18; Temp 99.4(O); Pulse Ox 95% on R/A; Weight 117.93 kg; mb9 Height 5 ft. 11 in. ; 19:44 Temp 101.9(R); mb9 21:26 BP 112 / 60; Pulse 86; Resp 18; Temp 97.9(O); Pulse Ox 100% ; mb9 22:20 BP 101 / 66; Pulse 82; Resp 17; Pulse Ox 98% on R/A; mb9 19:27 Body Mass Index 36.26 (117.93 kg, 180.34 cm) mb9 NIH Stroke Scale Scores: 19:34 NIHSS Score: 0 mb9 ED Course: 19:25 Patient arrived in ED. sb4 19:27 Kym Au, KENDALL is Primary Nurse. mb9 19:27 Arm band placed on. mb9 19:30 Nayan Izquierdo MD is Attending Physician. bs3 19:30 Triage completed. mb9 19:32 Placed in gown. Bed in low position. Call light in reach. Side rails up X 1. Client mb9 placed on continuous cardiac and pulse oximetry monitoring. NIBP monitoring applied. youth nutritional monitor on. 20:07 Attending Physician role handed off by Nayan Izquierdo MD sp4 20:07 Alton Jasso MD is Attending Physician. sp4 20:20 SARS-COV-2 Antigen Rapid Sent. mb9 20:20 Influenza Screen (a \\T\\ B) Sent. mb9 20:34 No provider procedures requiring assistance completed. mb9 20:43 Chest Single View XRAY In Process Unspecified. EDMS 20:58 CT Head Brain wo Cont In Process Unspecified. EDMS 22:25 Elizabet Orozco MD is Hospitalizing Provider. sp4 22:35 Patient admitted, IV remains in place. mb9 Administered Medications: 20:03 Drug: Acetaminophen PO 1000 mg Route: PO; mb9 20:20 Drug: NS 0.9% IV 500 ml Route: IV; Rate: bolus; Site: right forearm; mb9 22:54 Follow up: Response: No adverse reaction; IV Status: Completed infusion mb9 20:29 Drug: Rocephin IV 1 grams Route: IV; Rate: 1 bolus; Site: right wrist; as6 22:54 Follow up: Response: No adverse reaction 9 22:34 Drug: Oseltamivir PO 75 mg Route: PO; mb9 22:53 Follow up: Response: No adverse reaction 9 22:34 Drug: NS 0.9% IV 1000 ml Route: IV; Rate: 125 ml/hr; Site: right forearm; mb9 Medication: 19:33 VIS not applicable for this client. mb9 Outcome: 22:26 Decision to Hospitalize by Provider. sp4 22:53 Admitted to Tele room 401, with chart, Report called to KENDALL Guerrero mb9 22:53 Condition: stable 22:53 Instructed on the need for admit. 23:06 Patient left the ED. mb9 NIH Stroke Scale - NIH Stroke Score Date: 12/08/2022 Time: 19:34 Total Score = 0 10. Dysarthria (speech clarity - read or repeat words) - 0(Normal) 11. Extinction and Inattention (visual/tactile/auditory/spatial/personal) - 0(No abnormality) 1a. Level of Consciousness (LOC) - 0(Alert) 1b. Level of Consciousness (LOC) (Month \\T\\ Age) - 0(Both) 1c. LOC Commands (Open \\T\\ Closes Eyes/Reclamation Kettle Tender) - 0(Both) 2. Best Gaze (Lateral Gaze Paresis) - 0(Normal) 3. Visual Field Loss - 0(No visual loss) 4. Facial Palsy - 0(Normal) 5a. Left Arm: Motor (10-second hold) - 0(No drift) 5b. Right Arm: Motor (10-second hold) - 0(No drift) 6a. Left Leg: Motor (5-second hold - always test supine) - 0(No drift) 6b. Right Leg: Motor (5-second hold - always test supine) - 0(No drift) 7. Limb Ataxia (finger/nose \\T\\ heel/rivera - test with eyes open) - 0(Absent) 8. Sensory Loss (pinprick arms/legs/face) - 0(Normal) 9. Best Language: Aphasia (description/naming/reading) - 0(No aphasia) Initials: mb9 Signatures: Dispatcher [employer] EDSmith Keys RN RN as6 Nayan Izquierdo MD MD bs3 Ciara Gibson, PABrandonC PA-C sb4 Kym Au RN RN mb9 Alton Jasso MD MD sp4 Corrections: (The following items were deleted from the chart) 19:30 PMHx: Diabetes mellitus; mb9 mb9 19:30 PMHx: Unable to Obtain; mb9 mb9 22:20 21:00 Reassessment: Spoke to pts Brother, Zack, and gave update on pt. mb9 mb9
--- NOTE | 2022-12-08 22:33 | P.HP ---
Certification for Inpatient Patient admitted to: Observation With expected LOS: <2 Midnights Patient will require the following post-hospital care: None Practitioner: I am a practitioner with admitting privileges, knowledge of patient current condition, hospital course, and medical plan of care. Services: Services provided to patient in accordance with Admission requirements found in Title 42 Section 412.3 of the Code of Federal Regulations Patient History Date of Service: 12/08/22 Primary Care Provider: Chirag Reason for admission: Influenza, Weakness History of Present Illness: Mr. Damon is an 87 year old male with past medical history of hypertension, hyperlipidemia, hypothyroidism, and non-insulin dependent type 2 diabetes who presented to the emergency department with weakness. Per patient's son, he was speaking with him on the phone when he all of a sudden went "unresponsive." He did not fall. EMS found him sitting in a chair unable to move due to weakness. Upon arrival to ED, he was noted to be febrile and tachycardic. Workup revealed positive influenza B and BUN elevated at 26. Chest xray negative. He received tamiflu, rocephin, and IV fluids in the emergency department. Patient is still confused and very weak although vitals have improved. ED provider wishes to admit patient for further management. Allergies No Known Allergies Allergy (Unverified 11/16/11 21:35) Home medications list reviewed: Yes - Past Medical/Surgical History Diabetic: Yes -: Type 2 Diabetes, Non-Insulin Dependent -: Hypothyroidism -: Hyperlipidemia -: Hypertension Psychosocial/ Personal History: Patient lives at home alone. - Family History Family History: Reviewed- Non-Contributory - Social History Smoking Status: Never smoker Alcohol use: No CD- Drugs: No Caffeine use: No Place of Residence: Home Review of Systems General: Weakness Physical Examination - Vital Signs Temperature: 97.9 F Blood Pressure: 101/66 Pulse: 82 Respirations: 17 Pulse Ox (%): 98 - Physical Exam General: Alert, In no apparent distress, Confused HEENT: Atraumatic, EOMI, Sclerae nonicteric Neck: Supple, 2+ carotid pulse no bruit Respiratory: Clear to auscultation bilaterally, Normal air movement Cardiovascular: Regular rate/rhythm, Normal S1 S2 Gastrointestinal: Normal bowel sounds, No tenderness Musculoskeletal: No tenderness Integumentary: No rashes Neurological: Normal speech, Normal affect - Studies Laboratory Data (last 24 hrs) 12/08/22 20:17: PT 10.9, INR 0.99, APTT 27.0 12/08/22 20:17: Sodium 133 L, Potassium 4.0, BUN 26 H, Creatinine 1.23, Glucose 205 H, Total Bilirubin 0.6, AST 12 L, ALT 20, Alkaline Phosphatase 45 12/08/22 20:17: WBC 12.60 H, Hgb 13.3 L, Hct 39.2 L, Plt Count 202 Microbiology Data (last 24 hrs): 12/08/22 20:07 Nasopharnyx Influenza Type A Antigen Screen - Final 12/08/22 20:07 Nasopharnyx Influenza Type B Antigen Screen - Final Assessment and Plan - Problems (Diagnosis) (1) Influenza B Current Visit: Yes Status: Acute (2) Dehydration Current Visit: Yes Status: Acute (3) Generalized weakness Current Visit: Yes Status: Acute (4) Hypothyroidism Current Visit: Yes Status: Chronic (5) Hypertension Current Visit: Yes Status: Chronic (6) Hyperlipidemia Current Visit: Yes Status: Chronic Qualifiers: Hyperlipidemia type: unspecified Qualified Code(s): E78.5 - Hyperlipidemia, unspecified (7) Type 2 diabetes mellitus Current Visit: Yes Status: Chronic Qualifiers: Diabetes mellitus care home insulin use: without care home use Diabetes mellitus complication status: with hyperglycemia Qualified Code(s): E11.65 - Type 2 diabetes mellitus with hyperglycemia - Plan Patient is admitted for further management of influenza B and generalized weakness. Continue IV fluids and tamiflu. Physical therapy consulted. Blood cultures obtained. Monitor pulse oximetry. Current O2 satisfactory. [facility] accu checks with mild sliding scale and diabetic diet. Check lipid panel, TSH, A1c. Reconcile and continue home medications. Monitor and replete electrolytes per protocol. Lovenox for VTE prophylaxis. Full code. Discharge Plan: Home Plan to discharge in: 24 Hours - Advance Directives Does patient have a Living Will: No Does patient have a Durable POA for Healthcare: No - Code Status/Comfort Care Code Status Assessed: Yes Code Status: Full Code Physician Review: Patient Assessed, Agree with Above Assessment and Plan Critical Care: No Time Spent Managing Pts Care (In Minutes): 50
[2022-12-08] MEDS ORDERED: NA CHLORIDE 0.9% 1,000 ML ONE (22:35)
[2022-12-08] MEDS ORDERED: OSELTAMIVIR 75 MG CAP PO ONE (22:35)
[2022-12-08 22:54] LABS: Urine Bilirubin NEGATIVE (Negative); Urine Blood Negative (Negative); Urine Clarity Clear (Clear); Urine Color Light-Yellow (Yellow); Urine Glucose NEGATIVE (Negative); Urine Protein NEGATIVE (Negative); Urine Urobilinogen Normal (Normal); Urine pH 5.5 (5.0-7.0)
[2022-12-08] MEDS ORDERED: IPRATROPIUM BROM 0.5MG/2.5ML NEB PRN (23:25)
[2022-12-08] MEDS ORDERED: ONDANSETRON 4 MG/2 ML VIAL IV PRN (23:25)
[2022-12-08] MEDS ORDERED: ALBUTEROL 2.5 MG/3 ML NEB SOL NEB PRN (23:25)
[2022-12-08] MEDS: NA CHLORIDE 0.9% 1,000 ML IV SCH (23:25)
[2022-12-08 23:58] VITALS: BMI 36.2
[2022-12-09] MEDS: ACETAMINOPHEN 500 MG TAB PO PRN (02:43)
[2022-12-09 05:53] LABS: Hematocrit 35.6 % (39.6-49.0); Lymphocytes % 21.3 % (15.3-44.8); MCV 91.9 fL (80-100); RBC Red Blood Cell Count 3.88 M/uL (4.33-5.43)
[2022-12-09 06:22] LABS: Magnesium 1.8 mg/dL (1.6-2.4); Phosphorus 2.7 mg/dL (2.5-4.9); Potassium 3.3 mEq/L (3.5-5.1); Thyroid Stimulating Hormone 0.858 uIU/mL (0.358-3.740)
[2022-12-09] MEDS ORDERED: MAGNESIUM SULFATE 1 gm IVPB 1 GM/100 ML BAG IV ONE (07:00)
[2022-12-09] MEDS: INSULIN -REGULAR HUMAN 50 UNIT/0.5 ML ML SQ SCH ×4 (07:30→20:51)
[2022-12-09] MEDS: ENOXAPARIN 40 MG/0.4 ML SQ SCH (08:55)
[2022-12-09] MEDS: OSELTAMIVIR 30 MG CAP PO SCH ×2 (08:55→20:51)
[2022-12-09] MEDS ORDERED: POTASSIUM 25 MEQ EFFERV TAB PO ONE (09:00)
[2022-12-09] MEDS ORDERED: OSELTAMIVIR 75 MG CAP PO ONE (09:00)
[2022-12-09] MEDS: NA CHLORIDE 0.9% 1,000 ML IV SCH ×3 (09:25→20:55)
[2022-12-09] MEDS ORDERED: ALBUTEROL 2.5 MG/3 ML NEB SOL NEB PRN (13:00)
[2022-12-09] MEDS ORDERED: OSELTAMIVIR 30 MG CAP PO SCH (21:00)
[2022-12-10] MEDS: NA CHLORIDE 0.9% 1,000 ML IV SCH ×3 (05:25→15:25)
[2022-12-10 06:26] LABS: Potassium 3.5 mEq/L (3.5-5.1)
--- NOTE | 2022-12-10 07:10 | EKG ---
Test Date: 2022-12-08 Test Time: 19:47:08 Cherry Sorter: AKIKO MEASUREMENT RESULTS: Intervals: Rate: 88 UT: 220 QRSD: 98 QT: 366 QTc: 442 Howe: P: 75 UT: 220 QRS: 13 T: 45 INTERPRETIVE STATEMENTS: Sinus rhythm with 1st degree AV block with premature atrial complexes Otherwise normal ECG Compared to ECG 09/16/2010 20:01:39 Atrial premature complex(es) now present First degree AV block now present Electronically Signed On 12-10-22 07:06:59 CDT by Reji Hoffman
[2022-12-10] MEDS ORDERED: METHYLPREDNISOLONE 40 MG INJ IV ONE (07:27)
[2022-12-10] MEDS: INSULIN -REGULAR HUMAN 50 UNIT/0.5 ML ML SQ SCH ×4 (07:30→20:45)
--- NOTE | 2022-12-10 07:30 | P.PN ---
Date of Service: 12/09/22 Subjective Patient is doing well. But he is confused and not his normal self according to his sister. He normally takes care of himself but his speech is a little thicker than normal. He is weaker than he normally has. Most likely from viral encephalopathy from the influenza virus. Physical Examination - Vital Signs Reviewed - Physical Exam General: Alert, In no apparent distress, Confused HEENT: Atraumatic, EOMI, Sclerae nonicteric Neck: Supple, 2+ carotid pulse no bruit Respiratory: Clear to auscultation bilaterally, Normal air movement Cardiovascular: Regular rate/rhythm, Normal S1 S2 Gastrointestinal: Normal bowel sounds, No tenderness Musculoskeletal: No tenderness Integumentary: No rashes Neurological: Normal speech, Normal affect Assessment and Plan - Problems (Diagnosis) (1) Influenza B Current Visit: Yes Status: Acute (2) Dehydration Current Visit: Yes Status: Acute (3) Generalized weakness Current Visit: Yes Status: Acute (4) Hypothyroidism Current Visit: Yes Status: Chronic (5) Hypertension Current Visit: Yes Status: Chronic (6) Hyperlipidemia Current Visit: Yes Status: Chronic Qualifiers: Hyperlipidemia type: unspecified Qualified Code(s): E78.5 - Hyperlipidemia, unspecified (7) Type 2 diabetes mellitus Current Visit: Yes Status: Chronic 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 Continue IV fluids and tamiflu. Physical therapy consulted. Blood cultures obtained. Monitor pulse oximetry. Current O2 satisfactory. [facility] accu checks with mild sliding scale and diabetic diet. Check lipid panel, TSH, A1c. Reconcile and continue home medications. Monitor neuro status closely Lovenox for VTE prophylaxis. Full code. Discharge Plan: Home Plan to discharge in: 24 Hours - Advance Directives Does patient have a Living Will: No Does patient have a Durable POA for Healthcare: No - Code Status/Comfort Care Code Status Assessed: Yes Code Status: Full Code Physician Review: Patient Assessed, Agree with Above Assessment and Plan Critical Care: No Time Spent Managing Pts Care (In Minutes): 50
[2022-12-10] MEDS ORDERED: POTASSIUM CL SA 10 MEQ TAB PO ONE (09:00)
[2022-12-10] MEDS: ENOXAPARIN 40 MG/0.4 ML SQ SCH (09:28)
[2022-12-10] MEDS: OSELTAMIVIR 30 MG CAP PO SCH ×2 (09:29→20:45)
--- NOTE | 2022-12-10 10:55 | P.CNS ---
Date of Consult: 12/10/22 Reason for Consult: Influenza B Requesting Physician: Elizabet Orozco Chief Complaint: Influenza, Weakness History of Present Illness: Patient is an 87 year old male with a PMH of hypertension, hyperlipidemia, hypothyroidism, and non-insulin dependent type 2 diabetes who presented to the emergency department with weakness. Per patient's son, he was speaking with him on the phone when he all of a sudden went "unresponsive." He did not fall. EMS found him sitting in a chair unable to move due to weakness. Upon arrival to ED, he was noted to be febrile and tachycardic. Workup revealed positive influenza B and BUN elevated at 26. Chest xray negative. He received tamiflu, rocephin, and IV fluids in the emergency department. Allergies No Known Allergies Allergy (Unverified 11/16/11 21:35) Home medications list reviewed: Yes Home Medications: Albuterol Neb [Proventil 0.083% Neb Soln] 2.5 mg NEB [id number] PRN #60 amp 12/10/22 Aspirin 81 mg PO DAILY 12/10/22 Duloxetine HCl 60 mg PO BID 12/10/22 Famotidine 40 mg PO DAILY 12/10/22 Finasteride 5 mg PO DAILY 12/10/22 Gabapentin 1 cap PO DAILY 12/10/22 Hydrocodone Bit/Acetaminophen [Hydrocodon-Acetaminoph 7.5-325] 1 tab PO BID 12/10/22 Ipratropium Neb [Atrovent*] 0.5 mg NEB [id number] PRN #60 amp 12/10/22 Lovastatin 20 mg PO DAILY 12/10/22 Meloxicam 7.5 mg PO BID 12/10/22 Metformin HCl 1 tab PO BID 12/10/22 Metoprolol Succinate 50 mg PO DAILY 12/10/22 Nateglinide 1 tab PO BID 12/10/22 Nebulizer 1 each MC DAILY #1 ea 12/10/22 Nebulizer Accessories [Aeroneb Go] 1 each MC DAILY #1 ea 12/10/22 Oseltamivir Phosphate [Tamiflu] 30 mg PO BID #6 cap 12/10/22 Tamsulosin [Flomax*] 1 cap PO DAILY 12/10/22 hydroCHLOROthiazide [Hydrochlorothiazide] 25 mg PO DAILY 12/10/22 predniSONE [Deltasone] 20 mg PO DAILY #5 tab 12/10/22 - Past Medical/Surgical History Diabetic: Yes -: Type 2 Diabetes, Non-Insulin Dependent -: Hypothyroidism -: Hyperlipidemia -: Hypertension Psychosocial/ Personal History: Patient lives at home alone. - Social History Alcohol use: No CD- Drugs: No Caffeine use: No Place of Residence: Home Review of Systems 10-point ROS is otherwise unremarkable General: Weakness Respiratory: Cough Physical Examination Temp Pulse Resp BP Pulse Ox 97.6 F 82 18 135/61 95 12/10/22 08:00 12/10/22 08:00 12/10/22 08:00 12/10/22 08:00 12/10/22 08:00 General: Alert, In no apparent distress, Oriented x3 HEENT: Atraumatic, Normocephalic Neck: Supple, JVD not distended Respiratory: Clear to auscultation bilaterally, Normal air movement Cardiovascular: No edema, Normal pulses Gastrointestinal: Normal bowel sounds, Soft and benign, Non-distended Musculoskeletal: No clubbing, No swelling Integumentary: No rashes, No breakdown Neurological: Normal tone, Normal affect Laboratory Data - Reviewed Imagings Data: - Reviewed Conclusions/Impression: Problem List Influenza B Dehydration Generalized Weakness Hypothyroidism Hypertension Hyperlipidemia Diabetes Mellitus Type II Influenza B - On Tamiflu and steroid, nebulizer treatments - XR Chest 12/08: "No acute cardiopulmonary disease." - Reports generalized weakness and mild SOB on exertion. - Leukocytosis resolved, WBC 9.4 - Afebrile Recommendations - Tamiflu PO BID x 5 days (first dose given in ED on 12/08) - Prednisone PO daily x 5 days - Nebulizer treatments - Encourage adequate hydration and nutrition ID will follow patient as needed. Case discussed with Andry Graf
[2022-12-10] MEDS: ACETAMINOPHEN 500 MG TAB PO PRN (20:53)
[2022-12-11] MEDS ORDERED: METOPROLOL TARTRATE 5 MG/5 ML INJ IV STA (05:06)
[2022-12-11] MEDS ORDERED: METOPROLOL XL 50 MG TAB PO SCH ×2 (06:00→09:00)
[2022-12-11] MEDS ORDERED: predniSONE 20 MG TAB PO SCH (06:00)
[2022-12-11] MEDS: ENOXAPARIN 40 MG/0.4 ML SQ SCH (08:53)
[2022-12-11] MEDS: INSULIN -REGULAR HUMAN 50 UNIT/0.5 ML ML SQ SCH ×2 (08:54→12:38)
[2022-12-11] MEDS: OSELTAMIVIR 30 MG CAP PO SCH (08:57)
[2022-12-11] MEDS ORDERED: FINASTERIDE 5 MG TAB PO SCH (09:00)
[2022-12-11] MEDS ORDERED: FAMOTIDINE 20 MG TAB PO SCH (09:00)
[2022-12-11] MEDS ORDERED: HYDROCODONE/APAP 7.5/325 MG TAB PO SCH (09:00)
[2022-12-11] MEDS ORDERED: TAMSULOSIN 0.4 MG SR CAP PO SCH (09:00)
[2022-12-11] MEDS ORDERED: DULOXETINE 30 MG CAP PO SCH (09:00)
[2022-12-11] MEDS ORDERED: ASPIRIN 81 MG CHEWABLE TABLET PO SCH (09:00)
[2022-12-11] MEDS ORDERED: ATORVASTATIN 10 MG TAB PO SCH (09:00)
[2022-12-11] MEDS ORDERED: GABAPENTIN 300 MG CAP PO SCH (09:00)
--- NOTE | 2022-12-11 09:35 | P.PN ---
Date of Service: 12/11/22 Chief Complaint: Influenza, Weakness Subjective: Improving. No new changes. No acute events reported overnight. Patient in bed, awake and oriented x3. Reports generalized weakness and shortness of breath on exertion with improvement since yesterday. Continue current plan of care. Physical Examination Temp Pulse Resp BP Pulse Ox 97.5 F 61 18 142/52 H 96 12/11/22 08:00 12/11/22 08:00 12/11/22 08:00 12/11/22 08:00 12/11/22 08:00 General: Alert, In no apparent distress, Oriented x3 HEENT: Atraumatic, Normocephalic Respiratory: Normal air movement. Diminished bibasilar. No respiratory distress noted. Cardiovascular: No edema, Normal pulses Gastrointestinal: Normal bowel sounds, Soft and benign, Non-distended Integumentary: No rashes, No breakdown Neurological: Normal tone, Normal affect Studies Laboratory Data - Reviewed Imagings Data: - Reviewed Microbiology Data - Reviewed Medications List Reviewed: Yes Assessment and Plan Problem List Influenza B Dehydration Generalized Weakness Hypothyroidism Hypertension Hyperlipidemia Diabetes Mellitus Type II Influenza B - On Tamiflu, steroid, and nebulizer treatments - XR Chest 12/08: "No acute cardiopulmonary disease." - Reports generalized weakness and mild SOB on exertion. - Leukocytosis resolved. Afebrile (temp 97.5 F) - Blood cultures 12/08: No growth to date Recommendations - Continue Tamiflu PO BID x 5 days (first dose given in ED on 12/08) and nebulizer treatments. - Maintain adequate hydration and nutrition Current plan for d/c home with home health today. Case discussed with Patricia Graf
[2022-12-11 09:36] VITALS: O2SAT 94
[2022-12-11 12:55] VITALS: BP 139/69; TEMP 97.7
[2022-12-11] MEDS ORDERED: NATEGLINIDE 60 MG PO SCH (16:30)
== END 2022-12-11 12:59 | disposition home health service (06) | DRG 195 ==
LOC: ER 19:24 → ERHOLD 22:25 → 4TH 22:52 → OBSVTOIN 12-09 11:13
PROVIDERS: ADMIT Hospitalist; ATTEND Hospitalist
DX: J10.1 Influenza due to other identified influenza virus with other respiratory manifestations (principal); I10 Essential (primary) hypertension; I44.0 Atrioventricular block, first degree; E78.5 Hyperlipidemia, unspecified; E03.9 Hypothyroidism, unspecified; E86.0 Dehydration; E11.65 Type 2 diabetes mellitus with hyperglycemia; Z60.2 Problems related to living alone; Z79.52 Long term (current) use of systemic steroids; Z79.84 Long term (current) use of oral hypoglycemic drugs; Z79.899 Other long term (current) drug therapy; Z20.822 Contact with and (suspected) exposure to COVID-19
CPT/HCPCS: 36415; 70450; 71045; 80048; 80053; 80061; 81003; 82947; 83036; 83605; 83735; 84100; 84132; 84443; 85025; 85610; 85730; 87040; 87804; 87811; 93005; 94760; 96361; 96374; 97110; 97116; 97161; 97530; 99285; G0378; J0696; J1650; J1815; J2920; J3475; J7030; J7040; J7512